=== PATIENT | female | born 1970 | race Caucasian/White ===

== ENCOUNTER 2019-11-15 15:41 | Emergency (ER) | payer SELFPAY ==
--- OUTSIDE RECORDS SUMMARY | 2019-11-15 15:43 | XMS REPORT ---
:1970 [facility] Organization [facility] Address [address] Thomas [address] [place] [id number] Care Team Providers Name Role Phone Unavailable Unavailable Unavailable Problems This patient has no known problems. Allergies, Adverse Reactions, Alerts This patient has no known allergies or adverse reactions. Medications This patient has no known medications.
[2019-11-15] MEDS ORDERED: KETOROLAC 30 MG/ML INJ ONE (16:08)
--- NOTE | 2019-11-15 16:09 | ER ---
Nurse's Notes [facility] Name: Alex Sunshine Age: 49 yrs Sex: Female : 1970 Arrival Date: 11/15/2019 Time: 15:42 Bed 20 Private MD: Diagnosis: Radial styloid tenosynovitis [de Quervain] Presentation: 11/15 15:44 Chief complaint: Patient states: Right wrist pain and swelling for 3 days. No specific ll1 trauma, just heavy use of extremity. Coronavirus screen: The patient has NOT traveled to [place] in the past 14 days. Proceed with normal triage procedures. Ebola Screen: No symptoms or risks identified at this time. Initial Sepsis Screen: Does the patient meet any 2 criteria? No. Patient's initial sepsis screen is negative. Does the patient have a suspected source of infection? No. Patient's initial sepsis screen is negative. Risk Assessment: Do you want to hurt yourself or someone else? Patient reports no desire to harm self or others. 15:44 Method Of Arrival: Ambulatory ll1 15:44 Acuity: MARIE 4 ll1 15:52 Onset of symptoms was November 15, 2019. 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 - Social history:: Smoking status: Patient reports the use of cigarette tobacco products, smokes one-half pack cigarettes per day, Patient/guardian denies using alcohol, street drugs. Screenin:49 Abuse screen: Denies threats or abuse. Denies injuries from another. Nutritional ca1 screening: No deficits noted. Tuberculosis screening: No symptoms or risk factors identified. Fall Risk None identified. Assessment: 15:52 General: Appears in no apparent distress. comfortable, Behavior is calm, cooperative, ca1 appropriate for age. Pain: Complains of pain in right wrist Pain currently is 7 out of 10 on a pain scale. Pain began 2-3 days ago. Neuro: Level of Consciousness is awake, alert, obeys commands, Oriented to person, place, time, situation, Appropriate for age. Derm: Skin is intact, is healthy with good turgor, Skin is pink, warm \T\ dry. Musculoskeletal: Circulation, motion, and sensation intact. Capillary refill < 3 seconds, Range of motion: limited in right wrist Swelling present in right wrist. Vital Signs: 15:44 BP 143 / 91; Pulse 87; Resp 17; Temp 98.1; Pulse Ox 100% ; Weight 83.91 kg; Height 5 ll1 ft. 8 in. (172.72 cm); Pain 7/10; 15:44 Body Mass Index 28.13 (83.91 kg, 172.72 cm) ll1 ED Course: 15:42 Patient arrived in ED. as 15:46 Triage completed. ll1 15:47 Arm band placed on left wrist. Patient placed in an exam room. 1 15:48 Todd Bullard PA is PHCP. [facility] 15:48 Demetri Gallardo MD is Attending Physician. [facility] 15:49 Patient has correct armband on for positive identification. Bed in low position. Call ca1 light in reach. Side rails up X 1. Pulse ox on. NIBP on. 15:49 No provider procedures requiring assistance completed. Patient did not have IV access ca1 during this emergency room visit. 16:00 Velcro wrist splint applied to right wrist. em 16:06 Gage Rodriguez, RN is Primary Nurse. em 16:06 Yordy Pettit MD is Referral Physician. [facility] Administered Medications: 16:12 Drug: Ketorolac 30 mg Route: IM; Site: right deltoid; em 16:30 Follow up: Response: No adverse reaction em Outcome: 16:08 Discharge ordered by MD. [facility] 16:45 Discharged to home ambulatory. em 16:45 Condition: good 16:45 Discharge instructions given to patient, family, Instructed on discharge instructions, follow up and referral plans. medication usage, Demonstrated understanding of instructions, follow-up care, medications, Prescriptions given X 1. 16:46 Patient left the ED. em Signatures: Todd Bullard PA PA jmm Munoz, Edgar, RN RN em Antonina Ann Cheryl, RN RN ca1 Amrik Riddle RN RN ll1
--- NOTE | 2019-11-15 16:09 | EDPHYS ---
Physician Documentation [facility] Name: Alex Sunshine Age: 49 yrs Sex: Female : 1970 Arrival Date: 11/15/2019 Time: 15:42 Bed 20 Private MD: ED Physician Demetri Gallardo HPI: 11/15 15:59 This 49 yrs old Female presents to ER via Ambulatory with complaints of Wrist jmm Pain. 15:59 The patient or guardian reports pain. Onset: The symptoms/episode began/occurred jmm gradually, 3 day(s) ago. Modifying factors: The symptoms are alleviated by holding still, the symptoms are aggravated by movement. Associated signs and symptoms: Pertinent negatives: cyanosis distally, decreased sensation distally, fever, nausea, numbness distally, tingling distally, vomiting. This is a 49 year old female with no chronic medical conditions that presents to the ED with complaints of right wrist pain beginning approx 3 days ago. Patient states she recently painted a house. Denies other known injury. . 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 - Social history:: Smoking status: Patient reports the use of cigarette tobacco products, smokes one-half pack cigarettes per day, Patient/guardian denies using alcohol, street drugs. ROS: 15:59 Constitutional: Negative for fever, chills, and weight loss, Cardiovascular: Negative jmm for chest pain, palpitations, and edema, Respiratory: Negative for shortness of breath, cough, wheezing, and pleuritic chest pain. 15:59 MS/extremity: Positive for pain. 15:59 All other systems are negative. Exam: 15:59 Constitutional: This is a well developed, well nourished patient who is awake, alert, jmm and in no acute distress. Head/Face: atraumatic. Eyes: EOMI, no conjunctival erythema appreciated ENT: Moist Mucus Membranes Neck: Trachea midline, Supple Chest/axilla: Normal chest wall appearance and motion. Cardiovascular: Regular rate and rhythm. No edema appreciated Respiratory: Normal respirations, no respiratory distress appreciated Abdomen/GI: Non distended, soft Back: Normal ROM Skin: General appearance color normal 15:59 Musculoskeletal/extremity: pain elicited on palpation of the distal radial region, (+) [place], full radial pulse, compartments are soft, NVI. 15:59 Skin: Appearance: Color: normal in color. 15:59 Neuro: Orientation: is normal, Mentation: is normal, Memory: is normal. 15:59 Psych: Behavior/mood is pleasant, cooperative. Vital Signs: 15:44 BP 143 / 91; Pulse 87; Resp 17; Temp 98.1; Pulse Ox 100% ; Weight 83.91 kg; Height 5 ll1 ft. 8 in. (172.72 cm); Pain 7/10; 15:44 Body Mass Index 28.13 (83.91 kg, 172.72 cm) ll1 Procedures: 15:59 Splinting: Splint applied to right wrist using thumb spica. applied by tech. Examined jmm by me, post splint application: neurovascular intact, 2+ distal pulses palpable, brisk capillary refill noted, Patient tolerated well. MDM: 15:49 Patient medically screened. [facility] 16:05 Data reviewed: vital signs, nurses notes. Counseling: I had a detailed discussion with domi the patient and/or guardian regarding: the historical points, exam findings, and any diagnostic results supporting the discharge/admit diagnosis, radiology results, the need for outpatient follow up, to return to the emergency department if symptoms worsen or persist or if there are any questions or concerns that arise at home. ED course: PE findings consistent with flexor tenosynovitis. Patient advised to follow up with orthopedics for further evaluation. Patient understood and agrees with the plan of care. . 11/15 15:59 Order name: Thumb Spica Splint; Complete Time: 16:06 [facility] Administered Medications: 16:12 Drug: Ketorolac 30 mg Route: IM; Site: right deltoid; em 16:30 Follow up: Response: No adverse reaction em Disposition: 17:51 Co-signature as Attending Physician, Demetri Gallardo MD Chart signed for administrative ps1 purposes. . Disposition: 11/15/19 16:08 Discharged to Home. Impression: Radial styloid tenosynovitis [de Quervain]. - Condition is Stable. - Discharge Instructions: De Quervain Tenosynovitis. - Prescriptions for Ibuprofen 800 mg Oral Tablet - take 1 tablet by ORAL route every 8 hours As needed take with food; 30 tablet. - Medication Reconciliation Form, Thank You Letter, Antibiotic Education, Prescription Opioid Use, Work release form form. - Follow up: Yordy Pettit MD; When: 2 - 3 days; Reason: Recheck today's complaints, Continuance of care, Re-evaluation by your physician. Signatures: Todd Bullard PA PA jmm Munoz, Edgar, RN RN em Demetri Gallardo MD MD ps1 Sveta Ohara RN RN ca1 Amrik Riddle RN RN ll1 Corrections: (The following items were deleted from the chart) 16:46 16:08 11/15/2019 16:08 Discharged to Home. Impression: Radial styloid tenosynovitis [de em Quervain]. Condition is Stable. Forms are Medication Reconciliation Form, Thank You Letter, Antibiotic Education, Prescription Opioid Use. Follow up: Yordy Pettit; When: 2 - 3 days; Reason: Recheck today's complaints, Continuance of care, Re-evaluation by your physician. domi
[2019-11-15 17:01] VITALS: BP 143/91; TEMP 98.1; O2SAT 100
== END 2019-11-15 16:46 | disposition home or self-care (01) ==
LOC: ER 15:41
DX: M65.4 Radial styloid tenosynovitis [de Quervain] (principal); F17.210 Nicotine dependence, cigarettes, uncomplicated
CPT/HCPCS: 96372; 99284

== ENCOUNTER 2020-05-21 17:25 | Emergency (ER) | payer SELFPAY ==
--- OUTSIDE RECORDS SUMMARY | 2020-05-21 17:27 | XMS REPORT | Continuity of Care Document ---
:1970 Author Organization [facility] Address [address] [place] [address] Care Team Providers Name Role Phone Unavailable Unavailable Unavailable Problems This patient has no known problems. Allergies, Adverse Reactions, Alerts This patient has no known allergies or adverse reactions. Medications This patient has no known medications. Procedures This patient has no known procedures. Results This patient has no known results.
--- NOTE | 2020-05-21 18:45 | EDPHYS ---
Physician Documentation [facility] Name: Alex Sunshine Age: 49 yrs Sex: Female : 1970 Arrival Date: 05/21/2020 Time: 17:31 Bed 19 Private MD: ED Physician Ramsey Carpio HPI: 05/21 18:39 This 49 yrs old Female presents to ER via Ambulatory with complaints of Hives.[facility] 18:39 The patient's rash thought to be caused by an unknown cause. The rash is located on the [facility] right arm and left arm. Onset: The symptoms/episode began/occurred gradually, 2 month(s) ago. Associated signs and symptoms: Pertinent positives: itching, Pertinent negatives: fever, nausea, Pain swelling of lips, swelling of throat, swelling of tongue, vomiting. The patient has not experienced similar symptoms in the past. Historical: - Allergies: 17:42 No Known Drug Allergies; ll1 - PSHx: 17:42 None; ll1 - Immunization history:: Flu vaccine is up to date. - Social history:: Smoking status: Patient reports the use of cigarette tobacco products, smokes one-half pack cigarettes per day, Patient/guardian denies using alcohol, street drugs. ROS: 18:39 Constitutional: Negative for fever, chills, and weight loss, Cardiovascular: Negative jmm for chest pain, palpitations, and edema, Respiratory: Negative for shortness of breath, cough, wheezing, and pleuritic chest pain, Abdomen/GI: Negative for abdominal pain, nausea, vomiting, diarrhea, and constipation. 18:39 Skin: Positive for rash. 18:39 All other systems are negative. Exam: 18:39 Constitutional: This is a well developed, well nourished patient who is awake, alert, jmm and in no acute distress. Head/Face: atraumatic. Eyes: EOMI, no conjunctival erythema appreciated ENT: Moist Mucus Membranes Neck: Trachea midline, Supple Chest/axilla: Normal chest wall appearance and motion. Cardiovascular: Regular rate and rhythm. No edema appreciated Respiratory: Normal respirations, no respiratory distress appreciated Abdomen/GI: Non distended, soft Back: Normal ROM 18:39 Skin: papular crusting rash noted to the upper extremities bilaterally, no surrounding erythema or induration is appreciated. non tender to palpation.. 18:39 Neuro: Orientation: is normal, Mentation: is normal, Memory: is normal. 18:39 Psych: Behavior/mood is pleasant, cooperative. Vital Signs: 17:40 BP 137 / 100; Pulse 89; Resp 17; Temp 98.6; Pulse Ox 100% ; Pain 5/10; ll1 MDM: 18:39 Patient medically screened. [facility] 18:43 Data reviewed: vital signs, nurses notes. Counseling: I had a detailed discussion with [facility] the patient and/or guardian regarding: the historical points, exam findings, and any diagnostic results supporting the discharge/admit diagnosis, the need for outpatient follow up, to return to the emergency department if symptoms worsen or persist or if there are any questions or concerns that arise at home. ED course: Patient is alert and non toxic in appearance in the ED. Patient is advised to follow up with pcp and otherwise given strict return precautions. Patient understood and agrees with the plan of care. . Administered Medications: 18:55 Drug: Decadron 10 mg Route: IM; Site: right deltoid; ph 19:07 Follow up: Response: No adverse reaction ph Disposition: 05/22 17:05 Co-signature as Attending Physician, Ramsey Carpio MD I agree with the assessment and kdr plan of care. Disposition: 05/21/20 18:45 Discharged to Home. Impression: Rash and other nonspecific skin eruption. - Condition is Stable. - Discharge Instructions: Rash. - Prescriptions for Elimite 5 % Topical Cream - apply 1 application by TOPICAL route one time Wash after 12 hours.; 60 gram. Hydroxyzine HCl 25 mg Oral Tablet - take 1 tablet by ORAL route every 6 hours As needed; 30 tablet. Prednisone 20 mg Oral Tablet - take 3 tablets by ORAL route once daily for 12 days Please take 3 tabs by mouth daily for 3 days, then take 2 tabs daily for 3 days, then take 1 tab daily for 3 days, then 1/2 tab daily for 3 days; 20 tablet. - Medication Reconciliation Form, Thank You Letter, Antibiotic Education, Prescription Opioid Use form. - Follow up: Private Physician; When: 2 - 3 days; Reason: Recheck today's complaints, Continuance of care, Re-evaluation by your physician. Signatures: Ramsey Carpio MD MD kdr Mickail, Joel, PA PA [facility] Karma Garcia RN RN ph Amrik Riddle RN RN ll1 Corrections: (The following items were deleted from the chart) 05/21 19:09 18:45 05/21/2020 18:45 Discharged to Home. Impression: Rash and other nonspecific skin ll1 eruption. Condition is Stable. Forms are Medication Reconciliation Form, Thank You Letter, Antibiotic Education, Prescription Opioid Use. Follow up: Private Physician; When: 2 - 3 days; Reason: Recheck today's complaints, Continuance of care, Re-evaluation by your physician. domi
--- NOTE | 2020-05-21 18:45 | ER ---
Nurse's Notes [facility] Name: Alex Sunshine Age: 49 yrs Sex: Female : 1970 Arrival Date: 05/21/2020 Time: 17:31 Bed 19 Private MD: Diagnosis: Rash and other nonspecific skin eruption Presentation: 05/21 17:40 Chief complaint: Patient states: Rash to body for 2 months all over. Tried OTC ll1 benadryl, investa, and calamine that didn't help. States she treated her house for bed bugs recently. Coronavirus screen: Client denies travel out of the [place] in the last 14 days. At this time, the client does not indicate any symptoms associated with coronavirus-19. Ebola Screen: Patient denies travel to an Ebola-affected area in the 21 days before illness onset. Onset: The symptoms/episode began/occurred 2 week(s) ago. Anaphylaxis evaluation, no signs or symptoms of anaphylaxis were noted. Initial Sepsis Screen: Does the patient meet any 2 criteria? No. Patient's initial sepsis screen is negative. Risk Assessment: Do you want to hurt yourself or someone else? Patient reports no desire to harm self or others. Onset of symptoms was March 20, 2020. 17:40 Method Of Arrival: Ambulatory [facility] 17:40 Acuity: MARIE 4 ll1 Historical: - Allergies: 17:42 No Known Drug Allergies; ll1 - PSHx: 17:42 None; ll1 - Immunization history:: Flu vaccine is up to date. - Social history:: Smoking status: Patient reports the use of cigarette tobacco products, smokes one-half pack cigarettes per day, Patient/guardian denies using alcohol, street drugs. Screenin:08 Abuse screen: Denies threats or abuse. Denies injuries from another. Nutritional ph screening: No deficits noted. Tuberculosis screening: No symptoms or risk factors identified. Fall Risk None identified. Assessment: 19:09 General: Appears in no apparent distress. uncomfortable, Behavior is calm, cooperative, ph appropriate for age. Pain: Denies pain. Neuro: Level of Consciousness is awake, alert, obeys commands, Oriented to person, place, time, situation. Cardiovascular: Capillary refill < 3 seconds in bilateral fingers Patient's skin is warm and dry. Respiratory: Airway is patent Respiratory effort is even, unlabored, Respiratory pattern is regular, symmetrical. Derm: Skin is healthy with good turgor, Skin is pink, warm \T\ dry. Derm: Rash noted that is itchy, red, raised, on right arm and left arm. Musculoskeletal: Circulation, motion, and sensation intact. Range of motion: intact in all extremities. Vital Signs: 17:40 BP 137 / 100; Pulse 89; Resp 17; Temp 98.6; Pulse Ox 100% ; Pain 5/10; ll1 ED Course: 17:31 Patient arrived in ED. ds1 17:42 Triage completed. ll1 17:43 Arm band placed on. ll1 18:38 Todd Bullard PA is PHCP. [facility] 18:38 Ramsey Carpio MD is Attending Physician. [facility] 18:45 No provider procedures requiring assistance completed. ph 18:47 Karma Garcia, RN is Primary Nurse. ph 18:55 Patient did not have IV access during this emergency room visit. ph 19:08 Patient has correct armband on for positive identification. Bed in low position. Call light in reach. Side rails up X 1. Pulse ox on. NIBP on. Administered Medications: 18:55 Drug: Decadron 10 mg Route: IM; Site: right deltoid; ph 19:07 Follow up: Response: No adverse reaction ph Outcome: 18:45 Discharge ordered by . [facility] 19:09 Patient left the ED. 1 19:11 Discharged to home ambulatory. ph 19:11 Condition: good 19:11 Discharge instructions given to patient, Instructed on discharge instructions, follow up and referral plans. medication usage, Demonstrated understanding of instructions, follow-up care, medications, Prescriptions given X 3. Signatures: Todd Bullard PA PA jmm Sanford, Demi ds1 Karma Garcia, RN RN Amrik Riddle RN RN [facility]
[2020-05-21] MEDS ORDERED: dexAMETHasone 10 MG/ML VIAL ONE (19:11)
[2020-05-23 16:01] VITALS: BP 137/100; TEMP 98.6; O2SAT 100
== END 2020-05-21 19:09 | disposition home or self-care (01) ==
LOC: ER 17:25
DX: R21 Rash and other nonspecific skin eruption (principal); F17.210 Nicotine dependence, cigarettes, uncomplicated
CPT/HCPCS: 96372; 99283; J1100

== ENCOUNTER 2020-06-12 08:28 | Emergency (ER) | payer SELFPAY ==
--- OUTSIDE RECORDS SUMMARY | 2020-06-12 08:37 | XMS REPORT | Summary of Care ---
:1970 Author Organization [facility] - Health Address [address] [place] [id number] Care Team Providers Name Role Phone Pcp, Does Not Have A Primary Care Provider Reason for Referral Other (Routine) Status Reason Specialty Diagnoses / Referred By Contact Refe rred To Procedures Contact New Request Diagnoses Right wrist pain Erick Muñoz, Vinay Jama, Procedures Discharge Follow-up: Specialty Provider VINAY JAMA; 1 Week [employer] [address] [place], [place] [id number] [place], [place] Phone: [phone] Fax: Reason for Visit Reason Comments Wrist Pain Auth/Cert Status Reason Specialty Diagnoses / Referred By Referred To Procedures Contact Contact Emergency Medicine [facility] Dept [address] [place] [phone] Fax: Encounter Details Date Type Department Care Team Description 06/07/2020 Emergency [facility]-Emergency Erick Muñoz , [employer] Right wrist pain Department [address] [place] [address] (Primary Dx) [address] [place] [phone] [place] [phone] Allergies No Known Allergiesdocumented as of this encounter (statuses as of 06/07/2020) Medications Medication Sig Dispensed Refills Start Date End Date Status ibuprofen 800 mg Take 1 tablet by 30 tablet 0 08/03/2017 Active tablet mouth every 8 (eight) hours. documented as of this encounter (statuses as of 06/07/2020) Active Problems No known active problemsdocumented as of this encounter (statuses as of 06/07/2020) Social History Tobacco Use Types Packs/Day Years Used Date Never Assessed Sex Assigned at Date Recorded Not on file COVID-19 Exposure Response Date Recorded In the last month, have you been in contact with No / Unsure 06/07/2020 12:50 PM CDT someone who was confirmed or suspected to have Coronavirus / COVID-19? documented as of this encounter Last Filed Vital Signs Vital Sign Reading Time Taken Comments Blood Pressure 148/99 06/07/2020 1:09 PM CDT Pulse 88 06/07/2020 1:09 PM CDT Temperature 37 C (98.6 F) 06/07/2020 1:09 PM CDT Respiratory Rate 15 06/07/2020 1:09 PM CDT Oxygen Saturation 99% 06/07/2020 1:09 PM CDT Inhaled Oxygen Concentration - - Weight 88.5 kg (195 lb) 06/07/2020 1:09 PM CDT Height 170.2 cm (5' 7") 06/07/2020 1:09 PM CDT Body Mass Index 30.54 06/07/2020 1:09 PM CDT documented in this encounter ED Notes Hansa Vazquez, CHERYL - 06/07/2020 1:08 PM CDTPatient states she has history of tendonitis. States she works at [employer] and she started experiencing right wrist pain because they were busy and she "was working too hard". documented in this encounter Miscellaneous Notes ED Nurse Note - Adenike Willis RN - 06/07/2020 1:37 PM CDTPatient upset that she is not getting a work note. Patient states "I have to go to work I just camefor a note". I explained to patient that she was seen by a provider who provided a medical screening exam and was determined to not have am emergent medical condition. Patient was advised that unlessshe paid the fee she could not receive a note and that she would need to follow up with her PCP. Patient repeated "I just want a damn work note". Patient stated "I'm making a complaint this isn't legal". Patient was given the number for patient services. documented in this encounter Plan of Treatment Date Type Specialty Care Team Description 06/24/2020 Office Visit Family Medicine Ton Benton MD [address] [place] [address] [phone] Health Maintenance Due Date Last Done Comments Depression Screening 1984 DTaP,Tdap,and Td Vaccines (1 - 1991 Tdap) PAP SMEAR 1993 Breast Cancer Screening 2012 (MAMMOGRAM) INFLUENZA VACCINE (#1) 2020 Colorectal Cancer Screening 2022 PNEUMOCOCCAL 0-64 YEARS COMBINED Aged Out No longer eligible based on SERIES patient's age to complete this topic documented as of this encounter Procedures Procedure Name Priority Date/Time Associated Diagnosis Comme nts NOTICE OF PRIVACY Routine 06/07/2020 12:53 PM CDT PRACTICES CONSENT/REFUSAL FOR Routine 06/07/2020 12:51 PM CDT DIAGNOSIS AND TREATMENT documented in this encounter Results Not on filedocumented in this encounter Visit Diagnoses Diagnosis Right wrist pain - Primary Pain in joint, forearm documented in this encounter
--- OUTSIDE RECORDS SUMMARY | 2020-06-12 08:37 | XMS REPORT | Continuity of Care Document ---
:1970 Author Organization [facility] t Address [address] [place] [address] Care Team Providers Name Role Phone Mariana Lowe Attending Clinician Problems This patient has no known problems. Allergies, Adverse Reactions, Alerts This patient has no known allergies or adverse reactions. Medications This patient has no known medications. Procedures This patient has no known procedures. Encounters Start End Encounter Admission Attending Care Care Encounter Source Date/Time Date/Time Type Type Clinicians Facility Department ID 2020-06-07 2020-06-07 Emergency Wanda [facility] [id number] 13:10:00 13:42:00 Erick Grace [id number] [place] [id number] Roland [id number] Results This patient has no known results.
--- NOTE | 2020-06-12 10:20 | ER ---
Nurse's Notes [facility] Name: Alex Sunshine Age: 49 yrs Sex: Female : 1970 Arrival Date: 06/12/2020 Time: 08:29 Bed 2 Private MD: Diagnosis: Pain in throat;Acute upper respiratory infection, unspecified;Tendinitis, right wrist Presentation: 06/12 08:35 Chief complaint: Patient states: "It feels like there is a lump in my chest for the ss past 2 days. I woke up with a sore throat this morning. My granddaughter was recently diagnosed with strep." Also reports R wrist pain x 4 months. Hx of tendonitis. Coronavirus screen: Client denies travel out of the [place] in the last 14 days. Ebola Screen: Patient denies exposure to infectious person. Patient denies travel to an Ebola-affected area in the 21 days before illness onset. Initial Sepsis Screen: Does the patient meet any 2 criteria? No. Patient's initial sepsis screen is negative. Does the patient have a suspected source of infection? No. Patient's initial sepsis screen is negative. Risk Assessment: Do you want to hurt yourself or someone else? Patient reports no desire to harm self or others. Onset of symptoms is unknown. 08:35 Method Of Arrival: Ambulatory ss 08:35 Acuity: MARIE 3 ss ART CONSULTANT: 09:00 LMP N/A - tw2 Historical: - Allergies: 08:37 No Known Allergies; ss - Home Meds: 08:37 None [Active]; ss - PMHx: 08:37 None; ss - PSHx: 08:37 None; ss - Immunization history:: Adult Immunizations up to date. - Social history:: Smoking status: Patient reports the use of cigarette tobacco products, smokes one-half pack cigarettes per day. - Family history:: not pertinent. - Hospitalizations: : No recent hospitalization is reported. Screenin:00 Abuse screen: Denies threats or abuse. Nutritional screening: No deficits noted. tw2 Tuberculosis screening: No symptoms or risk factors identified. Fall Risk None identified. Assessment: 08:40 General: Appears in no apparent distress. well groomed, Behavior is calm, cooperative, tw2 appropriate for age. Pain: Complains of pain in uvula, left aspect of posterior pharynx and right aspect of posterior pharynx. Neuro: Level of Consciousness is awake, alert, obeys commands, Oriented to person, place, time, situation. Cardiovascular: Heart tones S1 S2 Patient's skin is warm and dry. Respiratory: Airway is patent Respiratory effort is even, unlabored, Respiratory pattern is regular, symmetrical, Breath sounds are clear bilaterally. GI: No signs and/or symptoms were reported involving the gastrointestinal system. Abdomen is flat, Bowel sounds present X 4 quads. : No signs and/or symptoms were reported regarding the genitourinary system. EENT: Throat is reddened. Derm: No signs and/or symptoms reported regarding the dermatologic system. Musculoskeletal: Range of motion: intact in all extremities. 09:53 Reassessment: Patient appears in no apparent distress at this time. No changes from tw2 previously documented assessment. Patient and/or family updated on plan of care and expected duration. Pain level reassessed. Patient is alert, oriented x 3, equal unlabored respirations, skin warm/dry/pink. 10:31 Reassessment: Patient appears in no apparent distress at this time. No changes from tw2 previously documented assessment. Patient and/or family updated on plan of care and expected duration. Pain level reassessed. Patient is alert, oriented x 3, equal unlabored respirations, skin warm/dry/pink. 10:43 Reassessment: Patient appears in no apparent distress at this time. No changes from tw2 previously documented assessment. Patient and/or family updated on plan of care and expected duration. Pain level reassessed. Patient is alert, oriented x 3, equal unlabored respirations, skin warm/dry/pink. Vital Signs: 08:35 BP 129 / 78; Pulse 87; Resp 15; Temp 97.0(TE); Pulse Ox 100% on R/A; Weight 90.72 kg; Height 5 ft. 7 in. (170.18 cm); Pain 5/10; 09:53 BP 131 / 84; Pulse 72; Resp 17; Pulse Ox 98% on R/A; tw2 10:31 BP 95 / 80; Pulse 74; Resp 18; Pulse Ox 100% on R/A; tw2 08:35 Body Mass Index 31.32 (90.72 kg, 170.18 cm) ED Course: 07:42 Bed in low position. Call light in reach. case monitor on. Pulse ox on. NIBP on. tw2 08:29 Patient arrived in ED. ag5 08:37 Triage completed. ss 08:37 Arm band placed on right wrist. ss 08:39 Arturo Flores MD is Attending Physician. rn 09:00 Tasneem Maki RN is Primary Nurse. tw2 09:04 COVID-19 Sent. tw2 09:04 Strep Sent. tw2 09:05 Flu Sent. tw2 10:32 Lorenzo Amador MD is Referral Physician. rn 10:43 No provider procedures requiring assistance completed. Patient did not have IV access tw2 during this emergency room visit. Administered Medications: 10:41 Drug: traMADol 50 mg Route: PO; tw2 10:43 Follow up: Response: No adverse reaction tw2 Outcome: 10:20 Discharge ordered by . rn 10:43 Discharged to home ambulatory. tw2 10:43 Condition: stable 10:43 Discharge instructions given to patient, Instructed on discharge instructions, follow up and referral plans. medication usage, Demonstrated understanding of instructions, follow-up care, medications, Prescriptions given X 1. 10:44 Patient left the ED. tw2 Addendum: 06/13/2020 14:41 Addendum: COVID-19 Result: Negative result given to RN to notify pt. Contacted by: pilar Clemons RN . Attempted to contact pt regarding negative COVID-19 swab results. Signatures: Wendy rIving RN RN Arturo Flores MD MD rn Smirch, Shelby, RN RN Tasneem Maki RN RN 2 [facility] ag[facility]
--- NOTE | 2020-06-12 10:20 | EDPHYS ---
Physician Documentation [facility] Name: Alex Sunshine Age: 49 yrs Sex: Female : 1970 Arrival Date: 06/12/2020 Time: 08:29 Bed 2 Private MD: ED Physician Arturo Flores HPI: 06/12 09:02 This 49 yrs old Female presents to ER via Ambulatory with complaints of Sore rn Throat, Hand Problem. 09:02 The patient presents with sore throat. The patient describes throat pain as burning, rn dry. 09:03 Onset: The symptoms/episode began/occurred 2 day(s) ago. Severity of symptoms: At their rn worst the symptoms were mild, in the emergency department the symptoms are unchanged. Modifying factors: The symptoms are alleviated by nothing, the symptoms are aggravated by swallowing. The patient has not experienced similar symptoms in the past. Reports sore throat for 2 days, granddaughter recently diagnosed with strep throat, also reports about 4 months of wrist/thumb pain without injury. Also reports "lump in chest for 2 days as well". Chest pain brief, not assoc with cough/sob/diaphoresis. No trauma. . PET CARE ASSISTANT: 09:00 LMP N/A - tw2 Historical: - Allergies: 08:37 No Known Allergies; ss - Home Meds: 08:37 None [Active]; ss - PMHx: 08:37 None; ss - PSHx: 08:37 None; ss - Immunization history:: Adult Immunizations up to date. - Social history:: Smoking status: Patient reports the use of cigarette tobacco products, smokes one-half pack cigarettes per day. - Family history:: not pertinent. - Hospitalizations: : No recent hospitalization is reported. ROS: 09:03 Constitutional: Negative for fever, chills, and weight loss, Eyes: Negative for injury, rn pain, redness, and discharge, ENT: + sore throat and runny nose Neck: Negative for injury, pain, and swelling, Cardiovascular: Negative for palpitations, and edema, Respiratory: Negative for shortness of breath, cough, wheezing, and pleuritic chest pain, Abdomen/GI: Negative for abdominal pain, nausea, vomiting, diarrhea, and constipation, MS/Extremity: + right wrist/thumb pain Skin: Negative for injury, rash, and discoloration, Neuro: Negative for headache, weakness, numbness, tingling, and seizure. Exam: 08:53 ECG was reviewed by the Attending Physician. rn 09:03 Constitutional: This is a well developed, well nourished patient who is awake, alert, rn and in no acute distress. Head/Face: Normocephalic, atraumatic. Eyes: Pupils equal round and reactive to light, extra-ocular motions intact. Lids and lashes normal. Conjunctiva and sclera are non-icteric and not injected. Cornea within normal limits. Periorbital areas with no swelling, redness, or edema. ENT: Mild pharyngeal erythema without exudate or stridor Neck: Trachea midline, no masses palpated, and no cervical lymphadenopathy. Supple, full range of motion without nuchal rigidity. No Meningismus. Cardiovascular: Regular rate and rhythm. No pulse deficits. Respiratory: Speaking full sentences. No increased work of breathing, no retractions or nasal flaring. Abdomen/GI: Soft, non-tender Skin: Warm, dry MS/ Extremity: Pulses equal, no cyanosis. Neurovascular intact. + painful extension of thumb and with palpation over tendons on radial side of wrist. No focal swelling/erythema/streaking. Neuro: Awake and alert, GCS 15 Vital Signs: 08:35 BP 129 / 78; Pulse 87; Resp 15; Temp 97.0(TE); Pulse Ox 100% on R/A; Weight 90.72 kg; ss Height 5 ft. 7 in. (170.18 cm); Pain 5/10; 09:53 BP 131 / 84; Pulse 72; Resp 17; Pulse Ox 98% on R/A; tw2 10:31 BP 95 / 80; Pulse 74; Resp 18; Pulse Ox 100% on R/A; tw2 08:35 Body Mass Index 31.32 (90.72 kg, 170.18 cm) ss MDM: 08:39 Patient medically screened. rn 10:18 Differential diagnosis: group A strep tonsillitis, influenza, pharyngitis, viral rn syndrome Tendinitis, carpal tunnel syndrome. Data reviewed: vital signs, nurses notes, lab test result(s), and as a result, I will discharge patient. Counseling: I had a detailed discussion with the patient and/or guardian regarding: the historical points, exam findings, and any diagnostic results supporting the discharge/admit diagnosis, lab results, the need for outpatient follow up, to return to the emergency department if symptoms worsen or persist or if there are any questions or concerns that arise at home. Special discussion: I discussed with the patient/guardian in detail that at this point there is no indication for admission to the hospital. It is understood, however, that if the symptoms persist or worsen the patient needs to return immediately for re-evaluation. 06/12 08:52 Order name: Strep; Complete Time: 10:18 rn 06/12 08:52 Order name: Flu; Complete Time: 10:18 rn 06/12 08:52 Order name: COVID-19 rn 06/12 08:52 Order name: EKG; Complete Time: 08:53 rn 06/12 10:11 Order name: Throat Culture EDMS 06/12 08:52 Order name: EKG - Nurse/Tech; Complete Time: 09:04 rn EC:53 Rate is 85 beats/min. Rhythm is regular. QRS [place] is Normal. [place] interval is normal. QRS rn interval is normal. QT interval is normal. No Q waves. T waves are Normal. No ST changes noted. Clinical impression: NSR w/ Non-specific ST/T Changes. Interpreted by me. Reviewed by me. Administered Medications: 10:41 Drug: traMADol 50 mg Route: PO; tw2 10:43 Follow up: Response: No adverse reaction tw2 Disposition: 06/12/20 10:20 Discharged to Home. Impression: Pain in throat, Acute upper respiratory infection, unspecified, Tendinitis, right wrist. - Condition is Stable. - Discharge Instructions: Sore Throat, Tendinitis, Upper Respiratory Infection, Adult. - Prescriptions for Medrol (Ronnie) 4 mg Oral Tablets, Dose Pack - take 1 tablet by ORAL route as directed - follow package instructions; 1 packet. - Medication Reconciliation Form, Thank You Letter, Antibiotic Education, Prescription Opioid Use form. - Work release form (06/12/20 10:44). em1 - Follow up: Private Physician; When: As needed; Reason: Recheck today's complaints, Re-evaluation by your physician. Follow up: Lorenzo Amador MD; When: As needed; Reason: Recheck today's complaints, Re-evaluation by your physician. - Problem is an ongoing problem. - Symptoms have improved. Signatures: Dispatcher [employer] EDMS Arturo Flores MD MD rn Smirch, Shelby, RN RN ss Wise, Tara, RN RN tw2 [place]1 Corrections: (The following items were deleted from the chart) 09:04 09:03 Constitutional: Negative for fever, chills, and weight loss, Eyes: Negative for rn injury, pain, redness, and discharge, Neck: Negative for injury, pain, and swelling, Cardiovascular: Negative for palpitations, and edema, Respiratory: Negative for shortness of breath, cough, wheezing, and pleuritic chest pain, Abdomen/GI: Negative for abdominal pain, nausea, vomiting, diarrhea, and constipation, MS/Extremity: + right wrist/thumb pain Skin: Negative for injury, rash, and discoloration, Neuro: Negative for headache, weakness, numbness, tingling, and seizure, rn 10:32 10:20 06/12/2020 10:20 Discharged to Home. Impression: Pain in throat; Acute upper rn respiratory infection, unspecified; Tendinitis, right wrist. Condition is Stable. Forms are Medication Reconciliation Form, Thank You Letter, Antibiotic Education, Prescription Opioid Use. Follow up: Private Physician; When: As needed; Reason: Recheck today's complaints, Re-evaluation by your physician. Problem is an ongoing problem. Symptoms have improved. rn 10:44 10:32 06/12/2020 10:20 Discharged to Home. Impression: Pain in throat; Acute upper tw2 respiratory infection, unspecified; Tendinitis, right wrist. Condition is Stable. Discharge Instructions: Sore Throat, Tendinitis, Upper Respiratory Infection, Adult. Prescriptions for Medrol (Ronnie) 4 mg Oral Tablets, Dose Pack - take 1 tablet by ORAL route as directed - follow package instructions; 1 packet. and Forms are Medication Reconciliation Form, Thank You Letter, Antibiotic Education, Prescription Opioid Use. Follow up: Private Physician; When: As needed; Reason: Recheck today's complaints, Re-evaluation by your physician. Follow up: Lorenzo Amador; When: As needed; Reason: Recheck today's complaints, Re-evaluation by your physician. Problem is an ongoing problem. Symptoms have improved. rn
[2020-06-12] MEDS ORDERED: TRAMADOL HCL 50 MG TAB ONE (10:52)
[2020-06-12 11:01] VITALS: TEMP 97
[2020-06-12 11:02] VITALS: BP 95/80; O2SAT 100
== END 2020-06-12 10:44 | disposition home or self-care (01) ==
LOC: ER 08:28
DX: J06.9 Acute upper respiratory infection, unspecified (principal); Z20.828 Contact with and (suspected) exposure to other viral communicable diseases; M77.9 Enthesopathy, unspecified; F17.210 Nicotine dependence, cigarettes, uncomplicated
CPT/HCPCS: 87070; 87081; 87804; 93005; 99284; U0002

== ENCOUNTER 2020-08-30 08:14 | Emergency (ER) | payer SELFPAY ==
--- OUTSIDE RECORDS SUMMARY | 2020-08-30 08:16 | XMS REPORT | Continuity of Care Document ---
:1970 Author Organization [facility] t Address [address] [place] [address] Care Team Providers Name Role Phone Mariana [...] Facility Department ID 2020-06-07 2020-06-07 Emergency Wanda [facility] [id number] 13:10:00 13:42:00 Erick Grace [id number] [place] [id number] [place] [phone] Results This patient has no known results.
--- NOTE | 2020-08-30 09:26 | ER ---
Nurse's Notes [facility] Name: Alex Sunshine Age: 49 yrs Sex: Female : 1970 Arrival Date: 08/30/2020 Time: 08:16 Bed 13 Private MD: Diagnosis: Acute upper respiratory infection, unspecified;Cough Presentation: 08/30 08:20 Chief complaint: Patient states: productive cough with phlegm, sore throat, and aa5 headache x 7-8 days ago. 08:20 Coronavirus screen: cough unrelated to allergies, headache. Ebola Screen: Patient aa5 negative for fever greater than or equal to 101.5 degrees Fahrenheit, and additional compatible Ebola Virus Disease symptoms. Initial Sepsis Screen: Does the patient meet any 2 criteria? No. Patient's initial sepsis screen is negative. Does the patient have a suspected source of infection? No. Patient's initial sepsis screen is negative. Risk Assessment: Do you want to hurt yourself or someone else? Patient reports no desire to harm self or others. Onset of symptoms was August 2020. 08:20 Acuity: MARIE 3 aa5 08:20 Method Of Arrival: Ambulatory aa5 Historical: - Allergies: 08:20 No Known Allergies; aa5 - Home Meds: 08:20 None [Active]; aa5 - PMHx: 08:20 Gestational hypertension; aa5 - PSHx: 08:20 ; aa5 - Immunization history:: Adult Immunizations unknown. - Social history:: Smoking status: Patient reports the use of cigarette tobacco products, smokes one-half pack cigarettes per day. - Family history:: not pertinent. Screenin:20 Abuse screen: Denies threats or abuse. Nutritional screening: No deficits noted. aa5 Tuberculosis screening: No symptoms or risk factors identified. Fall Risk None identified. Assessment: 08:20 General: Appears uncomfortable, Behavior is calm, cooperative. Pain: Complains of pain aa5 in head Pain currently is 5 out of 10 on a pain scale. Quality of pain is described as aching, Is continuous. Neuro: Level of Consciousness is awake, alert, obeys commands, Oriented to person, place, time, situation. Cardiovascular: Heart tones S1 S2 present Rhythm is regular. Respiratory: Reports cough that is productive, Airway is patent Respiratory effort is even, unlabored, Respiratory pattern is regular, symmetrical, Breath sounds are clear bilaterally. Denies shortness of breath. GI: Reports nausea, Patient currently denies vomiting. : No signs and/or symptoms were reported regarding the genitourinary system. EENT: Eyes are tearing on right eye and left eye. Derm: Skin is pink, warm \T\ dry. Musculoskeletal: Range of motion: intact in all extremities. Vital Signs: 08:20 BP 130 / 95; Pulse 82; Resp 16 S; Temp 98.2(O); Pulse Ox 99% on R/A; Weight 88.45 kg aa5 (R); Height 5 ft. 9 in. (175.26 cm) (R); Pain 5/10; 08:20 Body Mass Index 28.80 (88.45 kg, 175.26 cm) aa5 ED Course: 08:16 Patient arrived in ED. ag5 08:20 Arm band placed on. aa5 08:20 Patient has correct armband on for positive identification. Call light in reach. aa 08:24 Jose Francisco Holden MD is Attending Physician. [facility] 08:29 Zoë Quijano RN is Primary Nurse. jl7 08:40 Triage completed. aa5 09:20 COVID swab sent to lab. Flu and/or RSV swab sent to lab. jl7 09:39 No provider procedures requiring assistance completed. Patient did not have IV access jl7 during this emergency room visit. Administered Medications: 09:39 Not Given (pt left before administration): Zithromax 500 mg PO once jl7 Outcome: 09:25 Discharge ordered by . [facility] 09:40 Discharged to home ambulatory. jl7 09:40 Condition: stable 09:40 Discharge instructions given to patient, Instructed on discharge instructions, follow up and referral plans. medication usage, Demonstrated understanding of instructions, follow-up care, medications, Prescriptions given X 3. 09:40 Patient left the ED. jl7 Addendum: 09/02/2020 09:43 Addendum: COVID-19 Result: Negative result given to RN to notify pt. Attempted to s v contact pt regarding negative COVID-19 swab results. Unable to leave voice mail due to the number provided was either not a working number, the voice mail has not been set up, or the voice mailbox is full.. 14:57 Addendum: COVID-19 Result: Negative result given to RN to notify pt. Contacted by: SV. pilar mims Notified pt of negative COVID 19 swab results. Pt advised that even with a negative test result they should remain in isolation until symptom free for 3 days without medication. Pt also advised to return to the ED for worsening symptoms. Signatures: Wendy Irving, RN Jose Francisco Trejo MD MD cha Calderon, Audri, RN RN aa5 Zoë Quijano RN RN jl7 Billie Alicia ag5 Corrections: (The following items were deleted from the chart) 08/30 09:20 Discharged to home ambulatory, [place] [id number] 09:20 Condition: stable [place] [id number] 09:20 Discharge instructions given to patient, Instructed on discharge instructions, jl7 follow up and referral plans. medication usage, Demonstrated understanding of instructions, follow-up care, medications, Prescriptions given X 3, jl7
--- NOTE | 2020-08-30 09:26 | EDPHYS ---
Physician Documentation [facility] Name: Alex Sunshine Age: 49 yrs Sex: Female : 1970 Arrival Date: 08/30/2020 Time: 08:16 Bed 13 Private MD: ED Physician Jose Francisco Holden HPI: 08/30 09:21 This 49 yrs old Female presents to ER via Ambulatory with complaints of Cold vinny Symptoms. 09:21 The patient or guardian reports airway noise, cough, described as mild. Onset: The vinny symptoms/episode began/occurred 3 day(s) ago. Modifying factors: The symptoms are alleviated by nothing. the symptoms are aggravated by nothing. The patient or guardian reports flu symptoms. Severity of symptoms: At their worst the symptoms were mild, in the emergency department the symptoms are unchanged. Associated signs and symptoms: Pertinent positives: rhinorrhea, sore throat. Modifying factors: The symptoms are alleviated by nothing, the symptoms are aggravated by cold weather, exertion. Severity of symptoms: At their worst the symptoms were mild in the emergency department the symptoms are unchanged. Associated signs and symptoms: The patient has no apparent associated signs or symptoms. Historical: - Allergies: 08:20 No Known Allergies; aa5 - Home Meds: 08:20 None [Active]; aa5 - PMHx: 08:20 Gestational hypertension; aa5 - PSHx: 08:20 ; aa5 - Immunization history:: Adult Immunizations unknown. - Social history:: Smoking status: Patient reports the use of cigarette tobacco products, smokes one-half pack cigarettes per day. - Family history:: not pertinent. ROS: 09:21 Constitutional: Negative for fever, chills, and weight loss, Eyes: Negative for injury, vinny pain, redness, and discharge, ENT: Negative for injury, pain, and discharge, Neck: Negative for injury, pain, and swelling, Cardiovascular: Negative for chest pain, palpitations, and edema, Abdomen/GI: Negative for abdominal pain, nausea, vomiting, diarrhea, and constipation, Back: Negative for injury and pain, : Negative for injury, bleeding, discharge, and swelling, MS/Extremity: Negative for injury and deformity, Skin: Negative for injury, rash, and discoloration, Neuro: Negative for headache, weakness, numbness, tingling, and seizure, Psych: Negative for depression, anxiety, suicide ideation, homicidal ideation, and hallucinations, Allergy/Immunology: Negative for hives, rash, and allergies, Endocrine: Negative for neck swelling, polydipsia, polyuria, polyphagia, and marked weight changes, Hematologic/Lymphatic: Negative for swollen nodes, abnormal bleeding, and unusual bruising. 09:21 Respiratory: Positive for cough, "sounds productive". Exam: 09:21 Constitutional: This is a well developed, well nourished patient who is awake, alert, vinny and in no acute distress. Head/Face: Normocephalic, atraumatic. Eyes: Pupils equal round and reactive to light, extra-ocular motions intact. Lids and lashes normal. Conjunctiva and sclera are non-icteric and not injected. Cornea within normal limits. Periorbital areas with no swelling, redness, or edema. ENT: Nares patent. No nasal discharge, no septal abnormalities noted. Tympanic membranes are normal and external auditory canals are clear. Oropharynx with no redness, swelling, or masses, exudates, or evidence of obstruction, uvula midline. Mucous membranes moist. Neck: Trachea midline, no thyromegaly or masses palpated, and no cervical lymphadenopathy. Supple, full range of motion without nuchal rigidity, or vertebral point tenderness. No Meningismus. Chest/axilla: Normal chest wall appearance and motion. Nontender with no deformity. No lesions are appreciated. Cardiovascular: Regular rate and rhythm with a normal S1 and S2. No gallops, murmurs, or rubs. Normal PMI, no JVD. No pulse deficits. Abdomen/GI: Soft, non-tender, with normal bowel sounds. No distension or tympany. No guarding or rebound. No evidence of tenderness throughout. Back: No spinal tenderness. No costovertebral tenderness. Full range of motion. Skin: Warm, dry with normal turgor. Normal color with no rashes, no lesions, and no evidence of cellulitis. MS/ Extremity: Pulses equal, no cyanosis. Neurovascular intact. Full, normal range of motion. Neuro: Awake and alert, GCS 15, oriented to person, place, time, and situation. Cranial nerves II-XII grossly intact. Motor strength 5/5 in all extremities. Sensory grossly intact. Cerebellar exam normal. Normal gait. Psych: Awake, alert, with orientation to person, place and time. Behavior, mood, and affect are within normal limits. 09:21 Respiratory: the patient does not display signs of respiratory distress, Respirations: no acute changes, Breath sounds: no acute changes, rhonchi, that are mild, are scattered. 09:23 Musculoskeletal/extremity: Extremities: all appear grossly normal, with no appreciated vinny pain with palpation, ROM: no acute changes, intact in all extremities, full active range of motion, full passive range of motion, Circulation is intact in all extremities. Sensation intact. Compartment Syndrome exam of affected extremity: is normal. DVT Exam: No signs of deep vein thrombosis. no pain, no swelling, no tenderness, negative Homans' sign noted on exam, no appreciated bluish discoloration, no erythema, no increased warmth. Vital Signs: 08:20 BP 130 / 95; Pulse 82; Resp 16 S; Temp 98.2(O); Pulse Ox 99% on R/A; Weight 88.45 kg aa5 (R); Height 5 ft. 9 in. (175.26 cm) (R); Pain 5/10; 08:20 Body Mass Index 28.80 (88.45 kg, 175.26 cm) aa5 MDM: 08:24 Patient medically screened. [facility] 09:24 Differential diagnosis: bronchitis, flu, URI. Antibiotic administration: The patient is [facility] discharged and will get outpatient antibiotics, Zithromax. Differential Diagnosis: Bronchitis Influenza Upper Respiratory Infection Sinusitis Pharyngitis Pneumonia. Data reviewed: vital signs, nurses notes, lab test result(s). 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 Pulse oximetry: on room air is 99 %. Counseling: I had a detailed discussion with the patient and/or guardian regarding: the historical points, exam findings, and any diagnostic results supporting the discharge/admit diagnosis, the need for outpatient follow up, for definitive care, a family practitioner. 08/30 09:06 Order name: Flu [facility] 08/30 09:06 Order name: COVID-19 [facility] Administered Medications: 09:39 Not Given (pt left before administration): Zithromax 500 mg PO once jl7 Disposition: 08/30/20 09:25 Discharged to Home. Impression: Acute upper respiratory infection, unspecified, Cough. - Condition is Stable. - Discharge Instructions: Upper Respiratory Infection, Adult, Cool Mist Vaporizer, Upper Respiratory Infection, Adult, [id number], Cough, Adult, Odhz-wy-Vksc, Cough, Adult. - Prescriptions for Bromfed DM 2- 30-10 mg/5 mL Oral syrup - take 10 milliliter by ORAL route every 6 hours; 160 milliliter. Zithromax Z- Ronnie 250 mg Oral Tablet - take 1 tablet by ORAL route as directed for 5 days Day 1 - take two (2) tablets one time. Day 2, 3, 4 , 5 take one (1) tablet once daily.; 6 tablet. Medrol (Ronnie) 4 mg Oral Tablets, Dose Pack - take 1 tablet by ORAL route as directed - follow package instructions; 1 packet. - Medication Reconciliation Form, Thank You Letter, Antibiotic Education, Prescription Opioid Use form. - Follow up: Private Physician; When: 2 - 3 days; Reason: Recheck today's complaints, Continuance of care, Re-evaluation by your physician. - Problem is new. - Symptoms have improved. Signatures: Dispatcher [employer] EDJose Francisco Bay MD MD cha Calderon, Audri, RN RN aa5 Zoë Quijano RN RN jl7 Corrections: (The following items were deleted from the chart) 09:40 09:25 08/30/2020 09:25 Discharged to Home. Impression: Acute upper respiratory jl7 infection, unspecified; Cough. Condition is Stable. Forms are Medication Reconciliation Form, Thank You Letter, Antibiotic Education, Prescription Opioid Use. Follow up: Private Physician; When: 2 - 3 days; Reason: Recheck today's complaints, Continuance of care, Re-evaluation by your physician. Problem is new. Symptoms have improved. vinny
[2020-09-03 14:34] VITALS: BP 130/95; TEMP 98.2; O2SAT 99
== END 2020-08-30 09:40 | disposition home or self-care (01) ==
LOC: ER 08:14
DX: J06.9 Acute upper respiratory infection, unspecified (principal); Z20.828 Contact with and (suspected) exposure to other viral communicable diseases; F17.210 Nicotine dependence, cigarettes, uncomplicated
CPT/HCPCS: 87804; 99283; U0002

== ENCOUNTER 2020-10-03 12:06 | Emergency (ER) | payer SELFPAY ==
--- OUTSIDE RECORDS SUMMARY | 2020-10-03 12:13 | XMS REPORT | Continuity of Care Document ---
:1970 Author Organization [facility] t Address [address] [place] [address] Care Team Providers Name Role Phone Mariana [...] Facility Department ID 2020-06-07 2020-06-07 Emergency Wanda RUST [id number] 13:10:00 13:42:00 Erick Grace [id number] [place] [id number] [place] [phone] [id number] Results This patient has no known results.
[2020-10-03 14:30] LABS: Absolute Lymphocytes (CBC) 1.9 K/uL (0.7-4.9); Basophils % 0.9 % (0-1.3); Hematocrit 47.2 % (36.0-45.0); Lymphocytes % 34.1 % (15.3-44.8); MPV 7.1 fL (7.6-11.3); RBC Red Blood Cell Count 5.19 M/uL (3.86-4.86)
[2020-10-03] MEDS ORDERED: DIPHENHYDRAMINE 50 MG/ML VIAL ONE (14:40)
[2020-10-03] MEDS ORDERED: FAMOTIDINE 20 MG/2 ML VIAL IV ONE (14:40)
[2020-10-03 14:46] LABS: ALT/SGPT 23 U/L (12-78); AST/SGOT 14 U/L (15-37); Albumin 4.3 g/dL (3.4-5.0); Alkaline Phosphatase 57 U/L (45-117); BUN Blood Urea Nitrogen 15 mg/dL (7-18); Bicarbonate 30 mmol/L (21-32); Bilirubin Direct < 0.1 mg/dL (0-0.2); Bilirubin Total 0.4 mg/dL (0.2-1.0); Glucose Level 88 mg/dL (74-106); Lipase 104 U/L (73-393); Potassium 3.6 mmol/L (3.5-5.1); Protein, Total 7.6 g/dL (6.4-8.2); Sodium Level 141 mmol/L (136-145)
[2020-10-03] MEDS ORDERED: dexAMETHasone 10 MG/ML VIAL ONE (15:18)
[2020-10-03] MEDS ORDERED: hydrOXYzine HCL 25 MG TAB ONE (15:37)
--- NOTE | 2020-10-03 16:44 | ER ---
Nurse's Notes [facility] Name: Alex Sunshine Age: 50 yrs Sex: Female : 1970 Arrival Date: 10/03/2020 Time: 12:08 Bed 25 Private MD: Diagnosis: Rash and other nonspecific skin eruption Presentation: 10/03 12:26 Chief complaint: Patient states: 1. Itching with rash all over for 3 weeks. Tried ll1 calamine, no help. 2. Intermittent chest pain since yesterday. Slight SOB. No cough or fever. No pain at this time. More stress lately than usual. Coronavirus screen: Client denies travel out of the [place] in the last 14 days. difficulty breathing, Client presents with at least one sign or symptom that may indicate coronavirus-19. Standard/surgical mask placed on the client. The client reports previous COVID testing was negative. Ebola Screen: Patient denies travel to an Ebola-affected area in the 21 days before illness onset. Onset: The symptoms/episode began/occurred 3 week(s) ago. Anaphylaxis evaluation, no signs or symptoms of anaphylaxis were noted. Initial Sepsis Screen: Does the patient meet any 2 criteria? No. Patient's initial sepsis screen is negative. Does the patient have a suspected source of infection? No. Patient's initial sepsis screen is negative. Risk Assessment: Do you want to hurt yourself or someone else? Patient reports no desire to harm self or others. Onset of symptoms was September 12, 2020. 12:26 Method Of Arrival: Ambulatory ll1 12:26 Acuity: MARIE 3 ll1 Triage Assessment: 12:29 General: Appears in no apparent distress. Behavior is calm, cooperative, appropriate ll1 for age. Pain: Denies pain. Cardiovascular: Reports chest pain, Heart tones S1 S2 Capillary refill < 3 seconds Clubbing of nail beds is absent JVD is absent Patient's skin is warm and dry. Derm: Rash noted that is itchy, red, Reports rash with itching all over. Historical: - Allergies: 12:25 No Known Allergies; ll1 - PMHx: 12:25 gestational hypertension; ll1 - PSHx: 12:25 ; ll1 - Immunization history:: Flu vaccine is not up to date. - Social history:: Smoking status: Patient reports the use of cigarette tobacco products, smokes one-half pack cigarettes per day. Screenin:03 Abuse screen: Denies threats or abuse. Nutritional screening: No deficits noted. em Tuberculosis screening: No symptoms or risk factors identified. Fall Risk None identified. Assessment: 14:35 General: Appears in no apparent distress. comfortable, Behavior is calm, cooperative, em appropriate for age, Denies fever. Pain: Denies pain. Neuro: Level of Consciousness is awake, alert, obeys commands, Oriented to person, place, time, situation, Appropriate for age. Cardiovascular: Capillary refill < 3 seconds Patient's skin is warm and dry. Respiratory: Reports shortness of breath Airway is patent Respiratory effort is even, unlabored, Respiratory pattern is regular, symmetrical, Breath sounds are clear bilaterally. Denies cough. Derm: Skin is intact, is healthy with good turgor, Skin is pink, warm \T\ dry. Musculoskeletal: Capillary refill < 3 seconds, Range of motion: intact in all extremities. 15:20 Reassessment: Patient appears in no apparent distress at this time. Patient and/or em family updated on plan of care and expected duration. Pain level reassessed. Patient is alert, oriented x 3, equal unlabored respirations, skin warm/dry/pink. no improvement in symptoms. 16:30 Reassessment: Patient appears in no apparent distress at this time. Patient and/or em family updated on plan of care and expected duration. Pain level reassessed. Patient is alert, oriented x 3, equal unlabored respirations, skin warm/dry/pink. Patient states symptoms have improved. Vital Signs: 12:26 BP 140 / 97; Pulse 71; Resp 16; Temp 97.3; Pulse Ox 100% on R/A; Weight 86.18 kg; ll1 Height 5 ft. 9 in. (175.26 cm); Pain 0/10; 15:13 BP 142 / 77; Pulse 64; Resp 18; Pulse Ox 99% on R/A; em 12:26 Body Mass Index 28.06 (86.18 kg, 175.26 cm) ll1 ED Course: 12:08 Patient arrived in ED. ds1 12:25 Arm band placed on. ll1 12:29 Triage completed. ll1 13:53 Todd Bullard PA is PHCP. [facility] 13:53 Ramsey Carpio MD is Attending Physician. [facility] 13:57 Gage Rodriguez, RN is Primary Nurse. em 14:03 Patient has correct armband on for positive identification. Bed in low position. Call em light in reach. Adult w/ patient. 14:20 Initial lab(s) drawn, by me, sent to lab. Inserted saline lock: 20 gauge in left jp3 antecubital area, using aseptic technique. Blood collected. Patient maintains SpO2 saturation greater than 95% on room air. 14:24 Pulse ox on. NIBP on. jp3 16:43 Chacorta Villafana MD is Referral Physician. m 16:59 No provider procedures requiring assistance completed. IV discontinued, intact, em bleeding controlled, No redness/swelling at site. Pressure dressing applied. Administered Medications: 14:30 Drug: diphenhydrAMINE 25 mg Route: IVP; Site: left antecubital; em 15:10 Follow up: Response: No adverse reaction; No change in condition em 14:32 Drug: Pepcid 20 mg Route: IVP; Site: left antecubital; em 15:10 Follow up: Response: No adverse reaction; No change in condition em 15:12 Drug: Decadron - Dexamethasone 10 mg Route: IVP; Site: left antecubital; em 15:25 Follow up: Response: No adverse reaction em 15:26 Drug: hydrOXYzine 50 mg Route: PO; em 16:18 Follow up: Response: No adverse reaction; Marked relief of symptoms em Outcome: 16:42 Discharge ordered by MD. m 16:59 Discharged to home ambulatory. em 16:59 Condition: stable 16:59 Discharge instructions given to patient, Instructed on discharge instructions, follow up and referral plans. medication usage, Demonstrated understanding of instructions, follow-up care, medications, Prescriptions given X 3. 17:00 Patient left the ED. em Signatures: Todd Bullard PA PA [facility] Gage Rodriguez, RN RN em Melinda Best ds1 Thiago Ewing jp3 Amrik Riddle RN RN ll1
--- NOTE | 2020-10-03 16:44 | EDPHYS ---
Physician Documentation [facility] Name: Alex Sunshine Age: 50 yrs Sex: Female : 1970 Arrival Date: 10/03/2020 Time: 12:08 Bed 25 Private MD: ED Physician Ramsey Carpio HPI: 10/03 14:22 This 50 yrs old Female presents to ER via Ambulatory with complaints of jmm Itching. 14:22 The patient's rash thought to be caused by. Onset: The symptoms/episode began/occurred jmm gradually, 3 week(s) ago. Associated signs and symptoms: Pertinent positives: itching, abdominal pain, Pertinent negatives: fever, swelling of lips, swelling of throat, swelling of tongue, vomiting, wheezing. Historical: - Allergies: 12:25 No Known Allergies; ll1 - PMHx: 12:25 gestational hypertension; ll1 - PSHx: 12:25 ; ll1 - Immunization history:: Flu vaccine is not up to date. - Social history:: Smoking status: Patient reports the use of cigarette tobacco products, smokes one-half pack cigarettes per day. ROS: 14:22 Constitutional: Negative for fever, chills, and weight loss, Cardiovascular: Negative jmm for chest pain, palpitations, and edema, Respiratory: Negative for shortness of breath, cough, wheezing, and pleuritic chest pain. 14:22 Abdomen/GI: Positive for abdominal pain, Negative for nausea and vomiting, diarrhea. 14:22 Skin: Positive for rash. 14:22 All other systems are negative. Exam: 14:22 Constitutional: This is a well developed, well nourished patient who is awake, alert, jmm and in no acute distress. Head/Face: atraumatic. Eyes: EOMI, no conjunctival erythema appreciated ENT: Moist Mucus Membranes Neck: Trachea midline, Supple Chest/axilla: Normal chest wall appearance and motion. Cardiovascular: Regular rate and rhythm. No edema appreciated Respiratory: Normal respirations, no respiratory distress appreciated Abdomen/GI: Non distended, soft Back: Normal ROM 14:22 Skin: generalized erythematous rash noted to the chest, arms, abdomen. Vital Signs: 12:26 BP 140 / 97; Pulse 71; Resp 16; Temp 97.3; Pulse Ox 100% on R/A; Weight 86.18 kg; ll1 Height 5 ft. 9 in. (175.26 cm); Pain 0/10; 15:13 BP 142 / 77; Pulse 64; Resp 18; Pulse Ox 99% on R/A; em 12:26 Body Mass Index 28.06 (86.18 kg, 175.26 cm) ll1 MDM: 14:09 Patient medically screened. [facility] 14:22 Data reviewed: vital signs, nurses notes. Counseling: I had a detailed discussion with [facility] the patient and/or guardian regarding: the historical points, exam findings, and any diagnostic results supporting the discharge/admit diagnosis. 16:40 Counseling: I had a detailed discussion with the patient and/or guardian regarding: lab [facility] results, the need for outpatient follow up, to return to the emergency department if symptoms worsen or persist or if there are any questions or concerns that arise at home. ED course: Labs wnl. Patient advised to follow up with Derm for further evaluation. Patient also complains of increased anxiety/depression due to family situation. Denies SI or HI. Will give follow up information for psychiatry. Patient is otherwise given strict return precautions Patient understood and agrees with the plan of care. . 10/03 14:10 Order name: Basic Metabolic Panel; Complete Time: 14:50 [facility] 10/03 14:10 Order name: CBC with Diff; Complete Time: 14:50 [facility] 10/03 14:10 Order name: Hepatic Function; Complete Time: 14:50 [facility] 10/03 14:10 Order name: Lipase; Complete Time: 14:50 [facility] 10/03 12:41 Order name: EKG - Nurse/Tech; Complete Time: 12:41 3 10/03 14:10 Order name: IV Saline Lock; Complete Time: 14:24 [facility] 10/03 14:10 Order name: Labs collected and sent; Complete Time: 14:24 [facility] Administered Medications: 14:30 Drug: diphenhydrAMINE 25 mg Route: IVP; Site: left antecubital; em 15:10 Follow up: Response: No adverse reaction; No change in condition em 14:32 Drug: Pepcid 20 mg Route: IVP; Site: left antecubital; em 15:10 Follow up: Response: No adverse reaction; No change in condition em 15:12 Drug: Decadron - Dexamethasone 10 mg Route: IVP; Site: left antecubital; em 15:25 Follow up: Response: No adverse reaction em 15:26 Drug: hydrOXYzine 50 mg Route: PO; em 16:18 Follow up: Response: No adverse reaction; Marked relief of symptoms em Disposition: 10/04 14:23 Co-signature as Attending Physician, Ramsey Carpio MD I agree with the assessment and kdr plan of care. Disposition: 10/03/20 16:42 Discharged to Home. Impression: Rash and other nonspecific skin eruption. - Condition is Stable. - Discharge Instructions: Rash. - Prescriptions for Elimite 5 % Topical Cream - apply 1 application by TOPICAL route one time Wash after 12 hours.; 60 gram. Hydroxyzine HCl 50 mg Oral Tablet - take 1 tablet by ORAL route every 8 hours As needed; 20 tablet. Prednisone 20 mg Oral Tablet - take 3 tablet by ORAL route once daily for 5 days; 15 tablet. - Medication Reconciliation Form, Thank You Letter, Antibiotic Education, Prescription Opioid Use form. - Follow up: Private Physician; When: 2 - 3 days; Reason: Recheck today's complaints, Continuance of care, Re-evaluation by your physician. Follow up: Chacorta Villafana MD; When: 2 - 3 days; Reason: Recheck today's complaints, Continuance of care, Re-evaluation by your physician. Signatures: Dispatcher [employer] Ramsey Mullen MD MD [facility] Todd Bullard PA PA [facility] Gage Rodriguez, RN RN Stacey Cochran [facility] Amrik Riddle RN RN ll1 Corrections: (The following items were deleted from the chart) 10/03 16:37 15:41 Pelvis Wo Cont ordered. [facility] 16:43 16:42 10/03/2020 16:42 Discharged to Home. Impression: Rash and other nonspecific skin jmm eruption. Condition is Stable. Forms are Medication Reconciliation Form, Thank You Letter, Antibiotic Education, Prescription Opioid Use. Follow up: Private Physician; When: 2 - 3 days; Reason: Recheck today's complaints, Continuance of care, Re-evaluation by your physician. [facility] 17:00 16:43 10/03/2020 16:42 Discharged to Home. Impression: Rash and other nonspecific skin em eruption. Condition is Stable. Discharge Instructions: Rash. Prescriptions for Elimite 5 % Topical Cream - apply 1 application by TOPICAL route one time Wash after 12 hours.; 60 gram, Hydroxyzine HCl 50 mg Oral Tablet - take 1 tablet by ORAL route every 8 hours As needed; 20 tablet, Prednisone 20 mg Oral Tablet - take 3 tablet by ORAL route once daily for 5 days; 15 tablet. and Forms are Medication Reconciliation Form, Thank You Letter, Antibiotic Education, Prescription Opioid Use. Follow up: Private Physician; When: 2 - 3 days; Reason: Recheck today's complaints, Continuance of care, Re-evaluation by your physician. Follow up: Chacorta Villafana; When: 2 - 3 days; Reason: Recheck today's complaints, Continuance of care, Re-evaluation by your physician. domi
[2020-10-03 17:25] VITALS: TEMP 97.3
[2020-10-03 17:26] VITALS: BP 142/77; O2SAT 99
== END 2020-10-03 17:00 | disposition home or self-care (01) ==
LOC: ER 12:06
DX: R21 Rash and other nonspecific skin eruption (principal); F17.210 Nicotine dependence, cigarettes, uncomplicated
CPT/HCPCS: 36415; 80048; 80076; 83690; 85025; 93005; 96374; 96375; 99284; J1100; J1200

== ENCOUNTER 2022-05-05 09:01 | Emergency (ER) | payer SELFPAY ==
--- OUTSIDE RECORDS SUMMARY | 2022-05-05 09:04 | XMS REPORT | Continuity of Care Document ---
:1970 Author Organization [facility] t Address [address] [place] [address] Care Team Providers Name Role Phone JUAN ALBERTOMIRA ROMAN TALBOT Attending Clinician Unavailable Erick Lowe Attending Clinician Problems This patient has no known problems. Allergies, Adverse Reactions, Alerts Allergy Allergy Status Severity Reaction(s) Onset Inactive Treating Comm ents Source Name Type Date Date Clinician NO KNOWN Drug Active [facility] ALLERGIE Class [facility] Medications This patient has no known medications. Procedures This patient has no known procedures. Encounters Start End Encounter Admission Attending Care Care Encounter Source Date/Time Date/Time Type Type Clinicians Facility Department ID 2021-03-25 2021-03-25 Outpatient Parris ARIAS [facility] [id number] [facility] 09:30:00 09:30:00 ROMAN [id number] [facility] 2021-02-25 2021-02-25 Outpatient Parris ARIAS [facility] [id number] [facility] 13:45:00 13:45:00 ROMAN [facility] 2020-06-07 2020-06-07 Emergency Wanda [facility] [id number] 13:10:00 13:42:00 Erick Grace [id number] [place] [id number] [place] [id number] 2020-06-07 2020-06-07 Emergency X [facility] ERT [id number] [facility] 12:51:00 12:51:00 [facility] Results This patient has no known results.
--- NOTE | 2022-05-05 09:26 | EDPHYS ---
Physician Documentation [facility] Name: Alex Sunshine Age: 51 yrs Sex: Female : 1970 Arrival Date: 05/05/2022 Time: 09:03 Bed 1 Private MD: ED Physician Rory Stephenson HPI: 05/05 09:16 This 51 yrs old Female presents to ER via Ambulatory with complaints of L Ear jl9 Pain. Patient reports just getting over a cold last week.. 09:16 The patient presents with pain, a " 4" out of "10". The complaints affect the left ear. jl9 Onset: The symptoms/episode began/occurred 2 day(s) ago. Modifying factors: The symptoms are alleviated by nothing, the symptoms are aggravated by nothing. Associated signs and symptoms: Pertinent positives: Pertinent negatives:. 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 - Social history:: Smoking status: unknown. ROS: 09:17 Constitutional: Negative for fever, chills, and weight loss, Eyes: Negative for injury, jl9 pain, redness, and discharge. 09:17 Neck: Negative for injury, pain, and swelling, Cardiovascular: Negative for chest pain, palpitations, and edema, Respiratory: Negative for shortness of breath, cough, wheezing, and pleuritic chest pain, Abdomen/GI: Negative for abdominal pain, nausea, vomiting, diarrhea, and constipation, Back: Negative for injury and pain, : Negative for injury, bleeding, discharge, and swelling, MS/Extremity: Negative for injury and deformity, Skin: Negative for injury, rash, and discoloration, Neuro: Negative for headache, weakness, numbness, tingling, and seizure, Psych: Negative for depression, anxiety, suicide ideation, homicidal ideation, and hallucinations, Allergy/Immunology: Negative for hives, rash, and allergies, Endocrine: Negative for neck swelling, polydipsia, polyuria, polyphagia, and marked weight changes, Hematologic/Lymphatic: Negative for swollen nodes, abnormal bleeding, and unusual bruising. 09:17 ENT: Positive for ear pain. Exam: 09:17 Constitutional: This is a well developed, well nourished patient who is awake, alert, jl9 and in no acute distress. Head/Face: Normocephalic, atraumatic. Eyes: Pupils equal round and reactive to light, extra-ocular motions intact. Lids and lashes normal. Conjunctiva and sclera are non-icteric and not injected. Cornea within normal limits. Periorbital areas with no swelling, redness, or edema. 09:17 Neck: Trachea midline, no thyromegaly or masses palpated, and no cervical lymphadenopathy. Supple, full range of motion without nuchal rigidity, or vertebral point tenderness. No Meningismus. Chest/axilla: Normal chest wall appearance and motion. Nontender with no deformity. No lesions are appreciated. Cardiovascular: Regular rate and rhythm with a normal S1 and S2. No gallops, murmurs, or rubs. Normal PMI, no JVD. No pulse deficits. Respiratory: Lungs have equal breath sounds bilaterally, clear to auscultation and percussion. No rales, rhonchi or wheezes noted. No increased work of breathing, no retractions or nasal flaring. Abdomen/GI: Soft, non-tender, with normal bowel sounds. No distension or tympany. No guarding or rebound. No evidence of tenderness throughout. Back: No spinal tenderness. No costovertebral tenderness. Full range of motion. Skin: Warm, dry with normal turgor. Normal color with no rashes, no lesions, and no evidence of cellulitis. MS/ Extremity: Pulses equal, no cyanosis. Neurovascular intact. Full, normal range of motion. Neuro: Awake and alert, GCS 15, oriented to person, place, time, and situation. Cranial nerves II-XII grossly intact. Motor strength 5/5 in all extremities. Sensory grossly intact. Cerebellar exam normal. Normal gait. Psych: Awake, alert, with orientation to person, place and time. Behavior, mood, and affect are within normal limits. 09:17 ENT: External ear(s): are unremarkable, Ear canal(s): are normal, TM's: erythema, Examination of the other ear shows no obvious abnormality. Vital Signs: 09:54 BP 127 / 80; Pulse 78; Resp 16; Pulse Ox 100% on R/A; iw MDM: 09:16 Patient medically screened. jl9 09:18 Data reviewed: vital signs, nurses notes. jl9 09:23 Counseling: I had a detailed discussion with the patient and/or guardian regarding: the jl9 historical points, exam findings, and any diagnostic results supporting the discharge/admit diagnosis, the need for outpatient follow up. Administered Medications: 09:45 Drug: Ibuprofen 600 mg Route: PO; 3 10:09 Follow up: Response: No adverse reaction 3 Disposition: 19:26 Co-signature as Attending Physician, Rory Stephenson DO I agree with the assessment and wa3 plan of care. Disposition Summary: 05/05/22 09:24 Discharge Ordered Location: Home jl9 Condition: Stable jl9 Diagnosis - Otitis media, unspecified, left ear jl9 Followup: jl9 - With: Private Physician - When: 1 - 2 days - Reason: Recheck today's complaints, Continuance of care, Re-evaluation by your physician Discharge Instructions: - Discharge Summary Sheet jl9 - Otitis Media, Adult, Izdt-sw-Jwze jl9 Forms: - Medication Reconciliation Form jl9 - Thank You Letter jl9 - Antibiotic Education jl9 - Prescription Opioid Use jl9 Prescriptions: - Amoxicillin 875 mg Oral Tablet - take 1 tablet by ORAL route every 12 hours for 10 days; 20 tablet; Refills: 0, jl9 Product Selection Permitted Signatures: Rory Stephenson DO DO ms3 Siria Garcia RN RN 3 Gideon Dasilva jl9 Corrections: (The following items were deleted from the chart) 09:24 09:16 This 51 yrs old Female presents to ER via Ambulatory with complaints of jl9 Ear Pain. jl9
[2022-05-05] MEDS ORDERED: IBUPROFEN 200 MG TAB PO ONE (09:56)
[2022-05-05] MEDS ORDERED: IBUPROFEN 400 MG TAB ONE (09:56)
--- NOTE | 2022-05-05 10:09 | ER ---
Nurse's Notes [facility] Name: Alex Sunshine Age: 51 yrs Sex: Female : 1970 Arrival Date: 05/05/2022 Time: 09:03 Bed 1 Private MD: Diagnosis: Otitis media, unspecified, left ear Presentation: 05/05 09:54 Chief complaint: Patient states: left ear pain X 1 week. Coronavirus screen: At this iw time, the client does not indicate any symptoms associated with coronavirus-19. Ebola Screen: Patient negative for fever greater than or equal to 101.5 degrees Fahrenheit, and additional compatible Ebola Virus Disease symptoms Patient denies exposure to infectious person. Patient denies travel to an Ebola-affected area in the 21 days before illness onset. No symptoms or risks identified at this time. Initial Sepsis Screen: Does the patient meet any 2 criteria? No. Patient's initial sepsis screen is negative. Does the patient have a suspected source of infection? No. Patient's initial sepsis screen is negative. Risk Assessment: Do you want to hurt yourself or someone else? Patient reports no desire to harm self or others. Onset of symptoms was April 28, 2022. 09:54 Method Of Arrival: Ambulatory iw 09:54 Acuity: MARIE 4 iw Triage Assessment: 10:11 General: Appears in no apparent distress. comfortable, Behavior is calm, cooperative, eh3 appropriate for age. 10:11 Pain: Denies pain. EENT: No deficits noted. 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 - Social history:: Smoking status: unknown. Screenin:10 Abuse screen: Denies threats or abuse. Denies injuries from another. Nutritional eh3 screening: No deficits noted. Tuberculosis screening: No symptoms or risk factors identified. Fall Risk None identified. Vital Signs: 09:54 BP 127 / 80; Pulse 78; Resp 16; Pulse Ox 100% on R/A; iw ED Course: 09:03 Patient arrived in ED. rg4 09:04 Gideon Dasilva is PHCP. jl9 09:04 Rory Stephenson DO is Attending Physician. jl9 09:30 Tanisha Blanco, RN is Primary Nurse. iw 09:54 Arm band placed on. iw 09:55 Triage completed. iw 10:10 Patient has correct armband on for positive identification. Call light in reach. eh3 10:10 No provider procedures requiring assistance completed. Patient did not have IV access eh3 during this emergency room visit. Administered Medications: 09:45 Drug: Ibuprofen 600 mg Route: PO; eh3 10:09 Follow up: Response: No adverse reaction eh3 Medication: 10:11 VIS not applicable for this client. eh3 Outcome: 09:24 Discharge ordered by . jl9 10:08 Patient left the ED. eh3 10:09 Discharge instructions given to patient, Instructed on discharge instructions, follow eh3 up and referral plans. medication usage, Demonstrated understanding of instructions, follow-up care, medications, Prescriptions given X 1. 10:10 Discharged to home ambulatory. eh3 10:10 Condition: stable Signatures: Tanisha Blanco, Kassi Sky RN 4 Siria Garcia RN RN [facility] Gideon Dasilva 9
[2022-05-05 11:00] VITALS: BP 127/80; O2SAT 100
== END 2022-05-05 10:08 | disposition home or self-care (01) ==
LOC: ER 09:01
DX: H66.92 Otitis media, unspecified, left ear (principal)

== ENCOUNTER 2024-02-14 15:48 | Emergency (ER) | payer OTHER, SELFPAY ==
--- OUTSIDE RECORDS SUMMARY | 2024-02-14 15:52 | XMS REPORT | Continuity of Care Document ---
Author Name Unknown Address [address] [place] [address] [facility] thconnect Address [address] [place] [address] Care Team Providers Care [employer] Name Role Phone PCP, PATIENT DOES NOT HAVE A Primary Care Physic kwasi Unavailable Jose MCKEE Attending Clinician Unavailable Jose Briones Attending Clinician [phone] YOON PRESTON Attending Clinician Unavailab Yoon Meza MD Attending Clinician [phone] ROMAN ARIAS Attending Clinician Erick Wolf Attending Clinician [phone] Jose MCKEE Admitting Clinician Unavailable YOON PRESTON Admitting Clinician Unavailab carolann Payrachel Payer Name Policy Type Policy Number Effective Date Expirati on Date Source [facility] [id number] 2023-09-19 00:00:00 Problems Condition Name Condition Details Condition Category Status Onset Date Resolution Date Last Treatment Date Treating Clinician Comments Source Left ovarian cyst Left ovarian cyst Disease Active 03-22 00:00: 00 [facility] DDD (degenerat ade disc disease), lumbar DDD (degenerat ade disc disease), lumbar Disease Active 03-22 00:00: 00 [facility] Depression , unspecifie d depression type Depression , unspecifie d depression type Disease Active 03-22 00:00: 00 [facility] Allergies, Adverse Reactions, Alerts Allergy Name Allergy Type Status Severity Reaction(s) Onset Date Inactive Date Treating Clinician Comments Source NO KNOWN ALLERGIE S Drug Class Active [facility] Social History Social Habit Start Date Stop Date Quantity Comments Source History of tobacco use Cigarette Smoker [facility] Alcohol intake 2023-10-01 00:00:00 2023-10-01 00:00:00 .86 /d [facility] History of Social function 2023-10-01 00:00:00 2023-10-01 00:00:00 [facility] Alcohol Comment 2023-03-22 00:00:00 2023-03-22 00:00:00 cut down to rarely in 2021 [facility] Cigarettes smoked current (pack per day) - Reported 2021-02-25 00:00:00 2021-02-25 00:00:00 [facility] Tobacco use and exposure 2021-02-25 00:00:00 2021-02-25 00:00:00 Smokeless tobacco non-user [facility] Sex Ass[birth year] At 1970 00:00:00 1970 00:00:00 [facility] Smoking Status Start Date Stop Date Source Smokes tobacco daily 2021-02-25 00:00:00 [facility] Medications Ordered Medication Name Filled Medication Name Start Date Stop Date Current Medication? Ordering Clinician Indication Dosage Frequency Signature (SIG) Comments Components Source maalox:diph enhydrAMINE :lidocaine 2 % viscous 1:1:1 (FIRST-MOUT HWASH BLM) oral suspension 15 mL 10-02 02:15: 00 10-02 01:14 :00 No 15mL 15 mL, Oral (Swish & Swallow), ONCE, 1 dose, On 10/01/23 at 2015, Routine [facility] ketorolac (TORADOL) injection 15 mg 10-02 00:45: 00 10-02 00:45 :00 No 15mg 15 mg, Slow IV Push, ONCE, 1 dose, On 10/01/23 at 1845, JANA [facility] ondansetron (ZOFRAN (PF)) injection 4 mg 10-01 23:30: 00 10-01 23:08 :00 No 4mg 4 mg, Slow IV Push, ONCE, 1 dose, On 10/01/23 at 1730, JANA [facility] NaCl 0.9% (NS) bolus infusion 500 mL 10-01 22:30: 00 10-02 01:17 :00 No 500mL at 999 mL/hr, 500 mL, IV Infusion, ONCE, 1 dose, On 10/01/23 at 1630, STAT [facility] famotidine (PEPCID (PF)) injection 20 mg 10-01 22:30: 00 10-01 23:09 :00 No 20mg 20 mg, Slow IV Push, ONCE, 1 dose, On 10/01/23 at 1630, JANA [facility] famotidine (PEPCID) 40 mg tablet 10-01 00:00: 00 Yes [id number] 40mg Take 1 tablet by mouth in the morning. [facility] ketorolac (TORADOL) injection 30 mg 03-22 23:30: 00 03-22 22:39 :00 No 30mg 30 mg, Slow IV Push, ONCE, 1 dose, On Tue03/22/23 at 1830, Routine [facility] ondansetron (ZOFRAN (PF)) injection 4 mg 03-22 21:00: 00 03-22 21:00 :00 No 4mg 4 mg, Slow IV Push, ONCE, 1 dose, On Tue03/22/23 at 1600, JANA [facility] morpHINE (4 mg/mL) injection 4 mg 03-22 21:00: 00 03-22 21:00 :00 No 4mg 4 mg, Slow IV Push, ONCE, 1 dose, On Tue03/22/23 at 1600, STAT [facility] NaCl 0.9% (NS) bolus infusion 1,000 mL 03-22 19:15: 00 03-22 21:15 :00 No 1000mL at 999 mL/hr, 1,000 mL, IV Infusion, ONCE, 1 dose, On Tue03/22/23 at 1415, JANA [facility] iopamidol (ISOVUE 370-500 mL) injection 80 mL 03-22 19:00: 00 03-22 19:16 :00 No 80mL 80 mL, Intravenou s, ONCE, 1 dose, On Tue03/22/23 at 1400, Routine [facility] ondansetron (ZOFRAN (PF)) injection 4 mg 03-22 18:30: 00 03-22 18:40 :00 No 4mg 4 mg, Slow IV Push, ONCE, 1 dose, On Tue03/22/23 at 1330, JANA [facility] morpHINE (4 mg/mL) injection 4 mg 03-22 18:30: 00 03-22 18:40 :00 No 4mg 4 mg, Slow IV Push, ONCE, 1 dose, On Tue03/22/23 at 1330, STAT [facility] cyclobenzap rine 5 mg tablet 03-22 00:00: 00 Yes [id number] 5mg Take 1 tablet by mouth every 8 (eight) hours as needed for Muscle Spasms (severe pain). [facility] ibuprofen 800 mg tablet 03-22 00:00: 00 Yes [id number] 800mg Take 1 tablet by mouth every 6 (six) hours as needed for Pain (scale 4-6). [facility] DULoxetine 30 mg capsule 02-26 00:00: 00 Yes [id number] 30mg Take 1 capsule by mouth daily. [facility] etodolac 400 mg tablet 02-26 00:00: 00 Yes [id number] 400mg Take 1 tablet by mouth 2 (two) times daily. [facility] SERTraline 50 mg tablet 02-25 00:00: 00 Yes [id number] 50mg Take 1 tablet by mouth daily. [facility] Immunizations Ordered Immunization Name Filled Immunization Name Date Status Comments Source SARS-COV-2 COVID-19 PFIZER VACCINE 2021-05-06 00:00:00 Completed [facility] SARS-COV-2 COVID-19 PFIZER VACCINE Unknown Completed [facility] Vital Signs Vital Name Observation Time Observation Value Comments S trinidad Heart rate 2023-10-02 01:00:00 79 /min [facility] Body temperature 2023-10-02 01:00:00 37 Radha [facility] Respiratory rate 2023-10-02 01:00:00 18 /min [facility] Oxygen saturation in Arterial blood by Pulse oximetry 2023-10-02 01:00:00 99 /min [facility] Systolic blood pressure 2023-10-02 01:00:00 133 mm[Hg] [facility] Diastolic blood pressure 2023-10-02 01:00:00 82 mm[Hg] [facility] Body height 2023-10-01 21:45:00 170.2 cm [facility] Body weight 2023-10-01 21:45:00 102.059 kg [facility] BMI 2023-10-01 21:45:00 35.24 kg/m2 [facility] Systolic blood pressure 2023-03-22 22:45:00 108 mm[Hg] [facility] Diastolic blood pressure 2023-03-22 22:45:00 71 mm[Hg] [facility] Heart rate 2023-03-22 22:45:00 72 /min [facility] Respiratory rate 2023-03-22 22:45:00 16 /min [facility] Oxygen saturation in Arterial blood by Pulse oximetry 2023-03-22 22:45:00 99 /min [facility] BMI 2023-03-22 17:52:00 32.84 kg/m2 [facility] Body temperature 2023-03-22 17:52:00 37.22 Radha [facility] Body weight 2023-03-22 17:52:00 97.977 kg [facility] Procedures Procedure Date / Time Performed Performing Clinician Source US GALL BLADDER 2023-10-01 23:15:00 [facility] 2023-10-01 22:41:[address] [facility] MAGNESIUM 2023-10-01 22:41:[address] [facility] TROPONIN I 2023-10-01 22:41:[address] [facility] COMP. METABOLIC PANEL ([id number]) 2023-10-01 22:41:00 Jose Mckee [facility] CBC WITH DIFF 2023-10-01 22:41:00 [facility] 2023-10-01 22:41:00 [facility] CONSENT/REFUSAL FOR DIAGNOSIS AND TREATMENT 2023-10-01 21:42:42 Doctor Unassigned, [place] [facility] US OVARY TORSION 2023-03-22 22:19:16 Nathan Preston [facility] XR CHEST 2 VW 2023-03-22 19:17:00 Yoon Preston [facility] XR LUMBAR SPINE 2 VW 2023-03-22 19:17:00 Yoon Preston [facility] XR HIPS 3 VW RIGHT 2023-03-22 19:17:00 Julita Preston [facility] CT ABDOMEN PELVIS W CONTRAST 2023-03-22 19:00:00 Yoon Preston [facility] LIPASE 2023-03-22 18:39:00 Yoon Preston Un [facility] THYROID STIMULATING HORMONE 2023-03-22 18:39:00 Yoon Preston [facility] COMP. METABOLIC PANEL ([id number]) 2023-03-22 18:39:00 Yoon Preston [facility] CBC WITH DIFF 2023-03-22 18:39:00 Yoon Preston U [facility] URINALYSIS 2023-03-22 17:55:00 [facility] FOR [facility]AG[facility] AND TREATMENT 2023-03-22 17:47:57 Doctor Unassigned, [place] [facility] Encounters Start Date/Time End Date/Time Encounter Type Admission Type Attending Clinicians Care Facility Care Department Encounter ID Source 2023-10-01 15:56:00 2023-10-01 19:41:00 Emergency X Jose MCKEE [facility] ERT [id number] [facility] 2023-10-01 15:56:00 2023-10-01 19:41:00 Emergency Jose Mckee [facility] [id number] 4.2.7.2.686 [id number] [facility] 2023-03-22 13:04:00 2023-03-22 18:41:00 Emergency YOON OTT [facility] ERT [id number] [facility] 2023-03-22 13:04:00 2023-03-22 18:41:00 Emergency Yoon Preston [facility] [id number] 350.1.13.10 4.2.7.2.686 [id number] [facility] 2021-02-25 13:45:00 2021-02-25 13:45:00 Outpatient [facility]AN [facility]AS [facility] [id number] [facility] 2020-06-07 13:10:00 2020-06-07 13:42:00 Emergency Erick Muñoz [facility] [id number] 350.1.13.10 4.2.7.2.686 [id number] 2020-06-07 12:51:00 2020-06-07 12:51:00 Emergency X [facility] ERT [id number] [facility] Results Test Description Test Time Test Comments Results Resul t Comments Source US GALL BLADDER 2023-09-19 3 23:35:00 Exam: US GALL BLADDER Indication: Pain Technique: Real time shaw-scale ultrasound images of the right upperquadrant were obtained with color imaging when appropriate. Color Dopplerand spectral waveform analysis of the portal vein was performed. ?Imageswere saved for the patient's medical record. Comparison: None RL: Ordering Clinician: Jose MCKEE Technical Quality: Adequate Findings: Gallbladder: The gallbladder is normal in size without evidence of stoneformation or inflammation. The gallbladder wall measures 2.8 mm.Sonographic Khan's sign was reported as negative. The common bile duct isnormal in caliber measuring 3.6 mm. Liver: No liver lesion. Pancreas: The pancreas appears normal although it is partially obscured bybowel gas. Vessels: The spectral waveform of the portal vein is normal withappropriate directional flow. Additional Findings: None. [facility] Notes Date/Time Note Provider Source 2023-10-01 19:40:12 /Mu1hhTBzUizdte8my1W sp6LO7e5m6YkYq tgygKiuwKzpJpsqUIszPz38lDmuZK73297 -01-13T19:40:12 Pt given printed and verbal discharge instructions regarding gastritis or ulcers, encouraged hydration.Prescriptions provided.Pt verbalized understanding of instructions, pt awake alert oriented, resp reg unlabored, skin w/d, color appropriate for race, moves all ext well,pt encouraged to follow up with pcp.Advised to seek medical attention for new/prolonged/worsening of symptoms.No adverse reaction to meds given in ER noted upon discharge.PIV d'cd, dressing to site, catheter in tact.Awake, alert oriented, resp reg unlabored, skin w/d, pt leaving amb with steady gait, in no apparent distress. 31163-6Rtabwjkmo department LigkAG5792-41-17C47:41:07Emergency department [id number] .2.222048|[id number] for patient ylpf22220-1DfzmFAJXEINEGHXVtzvwyla d C-CDA narrative [id number] L Williams [address] Pj[id number] 23CFTBNXTCUKPKZABESYTXHU5176-99-56 T19:41:071.2.840.707278.1.72.3.15| 1.2.840.366825.1.13.104.2.7.2.7278 [id number] Ruth Blanco RN [facility] 2023-10-01 16:21:15 6XdGu9ygf09FF9gRE9wy RpALG8bJPtmkWs WCObXA8fyAlhekNfCvGQgNqHHIeHoA6468 -01-13T16:21:15Summary: US tech called out eta 1hr 35142-0Rflrbhxhp rocdNI3204-51-04T14:23:25Procedure noteTXT1.2.840.618132.1.13.104.2.7 .2.221657|[id number] for patient szwg24906-2MielADEZWWXRXWFBfgmexoj d C-CDA narrative [id number] 33NFZLLZITGZWMTSQBWXFCSO2006-60-62 T16:23:251.2.840.645792.1.72.3.15| 1.2.840.415347.1.13.104.2.7.2.7278 [id number] Ruth Ramachandran [facility] 2023-10-01 15:45:00 s8QZGfrsFjJOC57Kv17u lju8pGQIx1zPt9 p0S5FcTaKwheNv7VwqFz0PV5uI/S726423T15:45:00 Patient came in with complaints of abdominal pain and nausea since 3-4 days.PMHx: ovarian cyst 63935-4Qqeeqywfb department Triage pydyJV3206-87-55Y53:54:15[facility] Triage noteTXT1.2.840.287745.1.13.104.2.7 .2.967159|[id number] for patient lbvs27426-7Upoenbwsu department NoteLNNARRATIVEFormatted C-CDA narrative [id number] C Heredia [id number] 46DBDMPRITHKWFYGDKMVOLRM7885-43-67 T15:54:151.2.840.105048.1.72.3.15| 1.2.840.086862.1.13.104.2.7.2.7278 [id number] [facility]"
[2024-02-14] MEDS ORDERED: IBUPROFEN 200 MG TAB PO ONE (16:42)
[2024-02-14] MEDS ORDERED: CYCLOBENZAPRINE 10 MG TAB ONE (17:24)
--- NOTE | 2024-02-14 17:26 | EDPHYS ---
Physician Documentation [facility] Name: Alex Sunshine Age: 53 yrs Sex: Female : 1970 Arrival Date: 02/14/2024 Time: 15:48 Bed 14 Private MD: ED Physician Rory Stephenson HPI: 02/13 16:13 This 53 yrs old Female presents to ER via Ambulatory with complaints of Fall Injury. ms3 16:13 53-year-old female with past medical history of gestational hypertension presents to [facility] the emergency department for left knee and left elbow pain status post fall at [facility]. Patient states she was walking when she stepped on a [place] causing her to fall. Patient states her left elbow went into hamburger meat she had purchased protecting her elbow. Patient states all her weight landed on her left knee. Patient states pain is a 7/10. Patient states remaining still improves her symptoms. Patient states movement makes the pain is worse. 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 - Infectious Disease History:: Denies. - Immunization history: Last tetanus immunization: - up to date. - Social history:: Smoking status: Patient reports the use of cigarette tobacco products, smokes one pack cigarettes per day. ROS: 16:13 Constitutional: Negative for fever, and chills. Neck: Negative for injury, pain, and ms3 swelling, Cardiovascular: Negative for chest pain, and palpitations. Respiratory: Negative for shortness of breath, cough, wheezing, and pleuritic chest pain, Abdomen/GI: Negative for abdominal pain, nausea, vomiting, diarrhea, and constipation, Skin: Negative for injury, rash, and discoloration, 16:13 MS/extremity: Positive for pain, of the left knee, Exam: 16:13 Constitutional: This is a well developed, well nourished patient who is awake, alert, ms3 and in no acute distress. Head/Face: Normocephalic, atraumatic. Neck: Trachea midline, no cervical lymphadenopathy. Supple, full range of motion without nuchal rigidity, or vertebral point tenderness. No Meningismus. Chest/axilla: Normal chest wall appearance and motion. Nontender with no deformity. Cardiovascular: Regular rate and rhythm with a normal S1 and S2. No gallops, murmurs, or rubs. Normal PMI, no JVD. No pulse deficits. Respiratory: Lungs have equal breath sounds bilaterally, clear to auscultation and percussion. No rales, rhonchi or wheezes noted. No increased work of breathing, no retractions or nasal flaring. Abdomen/GI: Soft, non-tender, with normal bowel sounds. No distension or tympany. No guarding or rebound. No evidence of tenderness throughout. Skin: Warm, dry with normal turgor. Normal color with no rashes, no lesions, and no evidence of cellulitis. 16:13 Musculoskeletal/extremity: Extremities: noted in the left knee: pain, tenderness, Vital Signs: 16:06 Pulse 99; Resp 18; Temp 98.1; Pulse Ox 100% ; Weight 94.35 kg; Height 5 ft. 7 in. ; ap3 Pain 7/10; 16:10 BP 137 / 99; ap3 16:40 BP 138 / 94; Pulse 84; Resp 16; Pulse Ox 96% on R/A; me1 17:45 BP 146 / 87; Pulse 69; Resp 16; Pulse Ox 99% on R/A; me1 16:06 Body Mass Index 32.58 (94.35 kg, 170.18 cm) ap3 16:06 Pain Scale: Adult ap3 [place] Coma Score: 16:08 Eye Response: spontaneous(4). Motor Response: obeys commands(6). Verbal Response: ap3 oriented(5). Total: 15. Trauma Score (Adult): 16:08 Eye Response: spontaneous(1); Verbal Response: oriented(1); Motor Response: obeys ap3 commands(2); Systolic BP: > 89 mm Hg(4); Respiratory Rate: 10 to 29 per min(4); Juvencio Score: 15; Trauma Score: 12 MDM: 16:12 Patient medically screened. ms3 16:13 Differential diagnosis: contusion, fracture, sprain, strain. ms3 18:24 Data reviewed: vital signs, nurses notes, radiologic studies, and as a result, I will ms3 discharge patient. I considered the following discharge prescriptions or medication management in the emergency department Medications were administered in the Emergency Department. See MAR. Counseling: I had a detailed discussion with the patient and/or guardian regarding the historical points, exam findings, and any diagnostic results supporting the discharge/admit diagnosis, radiology results, the need for outpatient follow up, to return to the emergency department if symptoms worsen or persist or if there are any questions or concerns that arise at home. Special discussion: I discussed with the patient/guardian in detail that at this point there is no indication for admission to the hospital. It is understood, however, that if the symptoms persist or worsen the patient needs to return immediately for re-evaluation. ED course: Discussed x-ray results with patient. Patient to follow-up with Dr Arriaza 2 to 3 days. Patient understands and agrees with plan. All questions were answered. Return precautions discussed include worsening symptoms, or any other concerns. Offered patient crutches and knee immobilizer and patient declines at this time. Patient given prescription for ibuprofen and Flexeril.. 02/13 16:12 Order name: Knee Left 3 View XRAY; Complete Time: 17:38 ms3 Administered Medications: 16:43 Drug: Ibuprofen PO 600 mg PO once Route: PO; me1 17:32 Follow up: Response: No adverse reaction; Pain is decreased me1 17:31 Drug: Cyclobenzaprine PO 10 mg PO once Route: PO; me1 18:11 Follow up: Response: No adverse reaction; Pain is decreased me1 Disposition Summary: 02/14/24 18:02 Discharge Ordered Notes: Location: Home(02/14/24 18:02) ms3 Condition: Stable(02/14/24 18:02) ms3 Diagnosis - Pain in left knee ms3 - Fall on same level, unspecified ms3 Followup: ms3 - With: Keron Arriaza MD - When: 2 - 3 days - Reason: Recheck today's complaints Discharge Instructions: - Discharge Summary Sheet ms3 - Acute Knee Pain, Adult ms3 Forms: - Medication Reconciliation Form ms3 - Antibiotic Education ms3 - Prescription Opioid Use ms3 - Patient Portal Instructions ms3 - Leadership Thank You Letter ms3 Prescriptions: - Ibuprofen 600 mg Oral Tablet - take 1 tablet ORAL route every 6 hours As needed take with food; 30 tablet; ms3 Refills: 0, Product Selection Permitted - Cyclobenzaprine 10 mg Oral Tablet - take 1 tablet ORAL route every 8 hours As needed; 30 tablet; Refills: 0, ms3 Product Selection Permitted Signatures: Dispatcher [employer] Ruth Mendes RN RN ap3 Rory Stephenson DO DO ms3 Francie Ramos, CHERYL RN me1 Corrections: (The following items were deleted from the chart) 17: 17: Home ms3 ms3 17: 17: Stable ms3 ms3 17: 17:26 Colitis ms3 ms3 17: 17:26 Diarrhea, unspecified ms3 ms3
--- NOTE | 2024-02-14 17:26 | ER ---
Nurse's Notes [facility] Name: Alex Sunshine Age: 53 yrs Sex: Female : 1970 Arrival Date: 02/14/2024 Time: 15:48 Bed 14 Private MD: Diagnosis: Pain in left knee;Fall on same level, unspecified Presentation: 02/13 16:06 Chief complaint: Patient states: she fell on a [place], hitting her left knee and left ap3 elbow. patient denies hitting her head and denies LOC. Coronavirus screen: At this time, the client does not indicate any symptoms associated with coronavirus-19. Ebola Screen: No symptoms or risks identified at this time. Initial Sepsis Screen: Does the patient meet any 2 criteria? No. Patient's initial sepsis screen is negative. Does the patient have a suspected source of infection? No. Patient's initial sepsis screen is negative. Risk Assessment: Do you want to hurt yourself or someone else? Patient reports no desire to harm self or others. Onset of symptoms was February 14, 2024. 16:06 Method Of Arrival: Ambulatory ap3 16:06 Acuity: MARIE 4 ap3 16:09 Care prior to arrival: None. Mechanism of Injury: Fall from standing position. Trauma ap3 event details: Injury occurred in the [facility], Injury occurred: in a public building. Injury occurred: February 14, 2024. Triage Assessment: 16:08 General: Appears in no apparent distress. Behavior is calm, cooperative, appropriate ap3 for age. Pain: Complains of pain in left knee, left elbow Pain began suddenly. Neuro: Level of Consciousness is awake, alert, obeys commands, Oriented to person, place, time, situation, Appropriate for age. Cardiovascular: Patient's skin is warm and dry. Respiratory: Airway is patent Respiratory effort is even, unlabored, Respiratory pattern is regular, symmetrical. 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 - Infectious Disease History:: Denies. - Immunization history: Last tetanus immunization: - up to date. - Social history:: Smoking status: Patient reports the use of cigarette tobacco products, smokes one pack cigarettes per day. Screenin:08 Abuse screen: Denies threats or abuse. Nutritional screening: No deficits noted. ap3 Tuberculosis screening: No symptoms or risk factors identified. 16:44 [facility] ED Fall Risk Assessment (Adult) History of falling in the last 3 months, me1 including since admission Yes- single mechanical fall (1 pt) Confusion or Disorientation No (0 pts) Intoxicated or Sedated No (0 pts) Impaired Gait No (0 pts) Mobility Assist Device Used No (0 pt) Altered Elimination No (0 pt) Score/Fall Risk Level 0 - 2 = Low Risk Maintained a safe environment, Provided non-skid footwear, Hourly rounding (assess needs \T\ fall precautionary measures) done. Primary Survey: 16:08 NO uncontrolled hemorrhage observed. A: The client is awake and alert. The airway is ap3 patent. Breathing/Chest: Spontaneous respiratory effort, equal unlabored respirations, breath sounds clear bilaterally, regular pattern, symmetrical chest rise and fall. Circulation: No external hemorrhage present. Regular and strong central pulse, skin warm/dry/normal color. Disability Client is alert. Exposure/Environment: A warming method has been applied: A warm blanket has been provided to the patient. 16:45 Reassessment Alertness and Airway: Awake and alert. The airway is patent. Breathing: me1 Spontaneous respiratory effort, equal unlabored respirations, breath sounds clear bilaterally, regular pattern with symmetrical chest rise and fall. Respiratory effort Spontaneous Unlabored Breath sounds Clear Circulation: No external hemorrhage noted. Regular and strong central pulse, skin warm/dry/normal color. Heart tones Present Color [place] Temperature Warm Dry Disability: Pupils Pupils are equal, round, reactive to light and accomodation. Alert. Assessment: 16:44 General: Appears uncomfortable, well groomed, well developed, well nourished, Behavior me1 is calm, cooperative, appropriate for age, Reports slipped and fell on a [place]. c/o pain to left knee and left elbow. Pain: Complains of pain in left elbow and left knee Pain does not radiate. Pain currently is 7 out of 10 on a pain scale. Quality of pain is described as sharp, Pain began suddenly, Is continuous. Neuro: Level of Consciousness is awake, alert, obeys commands, Oriented to person, place, time, situation, Appropriate for age. Cardiovascular: Patient's skin is warm and dry. Respiratory: Airway is patent Respiratory effort is even, unlabored, Respiratory pattern is regular, symmetrical. GI: No signs and/or symptoms were reported involving the gastrointestinal system. : No signs and/or symptoms were reported regarding the genitourinary system. EENT: No signs and/or symptoms were reported regarding the EENT system. Derm: Skin is intact, is healthy with good turgor, Skin is pink, warm \T\ dry. Musculoskeletal: Reports pain in left knee and left elbow. Injury Description: slipped on a southern ute and fell, landing on left elbow and left knee. Vital Signs: 16:06 Pulse 99; Resp 18; Temp 98.1; Pulse Ox 100% ; Weight 94.35 kg; Height 5 ft. 7 in. ; ap3 Pain 7/10; 16:10 BP 137 / 99; ap3 16:40 BP 138 / 94; Pulse 84; Resp 16; Pulse Ox 96% on R/A; me1 17:45 BP 146 / 87; Pulse 69; Resp 16; Pulse Ox 99% on R/A; me1 16:06 Body Mass Index 32.58 (94.35 kg, 170.18 cm) ap3 16:06 Pain Scale: Adult ap3 Juvencio Coma Score: 16:08 Eye Response: spontaneous(4). Motor Response: obeys commands(6). Verbal Response: ap3 oriented(5). Total: 15. Trauma Score (Adult): 16:08 Eye Response: spontaneous(1); Verbal Response: oriented(1); Motor Response: obeys ap3 commands(2); Systolic BP: > 89 mm Hg(4); Respiratory Rate: 10 to 29 per min(4); Juvencio Score: 15; Trauma Score: 12 ED Course: 15:52 Patient arrived in ED. im 15:56 Jose Francisco Warren PA is PHCP. cp 15:56 Arturo Flores MD is Attending Physician. cp 16:07 Triage completed. ap3 16:09 Arm band placed on right wrist. ap3 16:09 O2 via room air. ap3 16:12 Attending Physician role handed off by Arturo Flores MD ms3 16:12 Rory Stephenson DO is Attending Physician. ms3 16:41 Francie Ramos RN is Primary Nurse. me1 16:44 Patient has correct armband on for positive identification. Bed in low position. Call me1 light in reach. Side rails up X 1. Provided Education on: POC. Verbalized understanding. . Client placed on continuous cardiac and pulse oximetry monitoring. NIBP monitoring applied. Pulse ox on. NIBP on. Warm blanket given. 16:44 No provider procedures requiring assistance completed. me1 17:07 Knee Left 3 View XRAY In Process Unspecified. EDMS 17:25 Elle Alexander MD is Referral Physician. ms3 18:01 Keron Arriaza MD is Referral Physician. ms3 18:08 Thermoregulation: warm blanket given to patient. me1 18:09 IV discontinued, intact, bleeding controlled, No redness/swelling at site. Pressure me1 dressing applied. Administered Medications: 16:43 Drug: Ibuprofen PO 600 mg PO once Route: PO; me1 17:32 Follow up: Response: No adverse reaction; Pain is decreased me1 17:31 Drug: Cyclobenzaprine PO 10 mg PO once Route: PO; me1 18:11 Follow up: Response: No adverse reaction; Pain is decreased me1 Medication: 16:44 VIS not applicable for this client. me1 Outcome: 17:26 Discharge ordered by . ms3 18:02 Discharge ordered by . ms3 18:08 Patient's length of stay was not longer than 2 hours. me1 18:09 Discharged to home ambulatory, me1 18:09 Condition: stable 18:09 Discharge instructions given to patient, Instructed on discharge instructions, follow up and referral plans. medication usage, Demonstrated understanding of instructions, follow-up care, medications, Prescriptions given X 2, 18:11 Patient left the ED. me1 Signatures: Dispatcher [employer] EDIN Jose Francisco Warren PA PA cp Prokisch, Amanda, RN RN ap3 Rory Stephenson DO DO ms3 Mickie Butcher Michelle, RN RN me1
--- NOTE | 2024-02-14 17:31 | RAD REPORT ---
EXAM DESCRIPTION: RAD - Knee Left 3 View - 02/14/2024 5:05 pm CLINICAL HISTORY: Left knee pain FINDINGS: No fracture or dislocation is seen.
[2024-02-14 18:32] VITALS: TEMP 98.1
[2024-02-14 18:51] VITALS: BP 146/87; O2SAT 99
== END 2024-02-14 18:11 | disposition home or self-care (01) ==
LOC: ER 15:48
DX: M25.562 Pain in left knee (principal); W18.30XA Fall on same level, unspecified, initial encounter; F17.210 Nicotine dependence, cigarettes, uncomplicated
CPT/HCPCS: 99285

== ENCOUNTER 2024-03-07 15:53 | Emergency (ER) | payer OTHER ==
--- OUTSIDE RECORDS SUMMARY | 2024-03-07 15:57 | XMS REPORT | Continuity of Care Document ---
Author Name Unknown Address [address] [facility] [address] [place] [address] [facility] Address [address] [facility] 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 Name Role Phone PCP, PATIENT DOES NOT HAVE A Primary Care Physic kwasi Unavailable Jose MCKEE Attending Clinician Unavailable Jose Briones Attending Clinician [phone] YOON KEITH Attending Clinician Unavailab Yoon Meza MD Attending Clinician [phone] ROMAN ARIAS Attending Clinician Erick Wolf Attending Clinician [phone] Jose MCKEE Admitting Clinician YOON Tejada Admitting Clinician Unavailab carolann Payrachel Payer Name Policy Type Policy Number Effective Date Expirati on Date Source [facility] [id number] 2023-09-19 00:00:00 Problems Condition Name Condition Details Condition Category Status Onset Date Resolution Date Last Treatment Date Treating Clinician Comments Source Left ovarian cyst Left ovarian cyst Disease Active 03-22 00:00: 00 [facility] DDD (degenerat ade disc disease), lumbar DDD (degenerat ade disc disease), lumbar Disease Active 03-22 00:00: 00 [facility] Depression , unspecifie d depression type Depression , unspecifie d depression type Disease Active 03-22 00:00: 00 [facility] Allergies, Adverse Reactions, Alerts Allergy Name Allergy Type Status Severity Reaction(s) Onset Date Inactive Date Treating Clinician Comments Source NO KNOWN ALLERGIE S Drug Class Active [facility] Social History Social Habit Start Date Stop Date Quantity Comments Source History of tobacco use Cigarette Smoker [facility] Sexual [facility] Alcohol intake 2023-10-01 00:00:00 2023-10-01 00:00:00 .86 /d [facility] History of Social function 2023-10-01 00:00:00 2023-10-01 00:00:00 [facility] Alcohol Comment 2023-03-22 00:00:00 2023-03-22 00:00:00 cut down to rarely in 2021 [facility] Cigarettes smoked current (pack per day) - Reported 2021-02-25 00:00:00 2021-02-25 00:00:00 [facility] Tobacco use and exposure 2021-02-25 00:00:00 2021-02-25 00:00:00 Smokeless tobacco non-user [facility] Sex Ass[birth year] At 1970 00:00:00 1970 00:00:00 [facility] Smoking Status Start Date Stop Date Source Smokes tobacco daily 2021-02-25 00:00:00 [facility] Medications Ordered Medication Name Filled Medication Name Start Date Stop Date Current Medication? Ordering Clinician Indication Dosage Frequency Signature (SIG) Comments Components Source maalox:diph enhydrAMINE :lidocaine 2 % viscous 1:1:1 (FIRST-MOUT HWASH BLM) oral suspension 15 mL 10-02 02:15: 00 10-02 01:14 :00 No 15mL 15 mL, Oral (Swish & Swallow), ONCE, 1 dose, On 10/01/23 at 2015, Routine [facility] ketorolac (TORADOL) injection 15 mg 10-02 00:45: 00 10-02 00:45 :00 No 15mg 15 mg, Slow IV Push, ONCE, 1 dose, On 10/01/23 at 1845, JANA [facility] ondansetron (ZOFRAN (PF)) injection 4 mg 10-01 23:30: 00 10-01 23:08 :00 No 4mg 4 mg, Slow IV Push, ONCE, 1 dose, On Tue10/01/23 at 1730, JANA [facility] NaCl 0.9% (NS) bolus infusion 500 mL 10-01 22:30: 00 10-02 01:17 :00 No 500mL at 999 mL/hr, 500 mL, IV Infusion, ONCE, 1 dose, On 10/01/23 at 1630, STAT [facility] famotidine (PEPCID (PF)) injection 20 mg 10-01 22:30: 00 10-01 23:09 :00 No 20mg 20 mg, Slow IV Push, ONCE, 1 dose, [facility] 40 mg tablet 10-01 00:00: 00 Yes [id number] 40mg Take 1 tablet by mouth in the morning. [facility] ketorolac (TORADOL) injection 30 mg 03-22 23:30: 00 03-22 22:39 :00 No 30mg 30 mg, Slow IV Push, ONCE, 1 dose, On Tue03/22/23 at 1830, Routine [facility] ondansetron (ZOFRAN (PF)) injection 4 mg 03-22 21:00: 00 03-22 21:00 :00 No 4mg 4 mg, Slow IV Push, ONCE, 1 dose, [facility] Tue03/22/23 at 1600[facility] (4 mg/mL) injection 4 mg 03-22 21:00: 00 03-22 21:00 :00 No 4mg 4 mg, Slow IV Push, ONCE, 1 dose, On Tue03/22/23 at 1600, STAT [facility] NaCl 0.9% (NS) bolus infusion 1,000 mL 03-22 19:15: 00 03-22 21:15 :00 No 1000mL at 999 mL/hr, 1,000 mL, IV Infusion, ONCE, 1 dose, On Tue03/22/23 at 1415, JANA [facility] iopamidol (ISOVUE 370-500 mL) injection 80 mL 03-22 19:00: 00 03-22 19:16 :00 No 80mL 80 mL, Intravenou s, ONCE, 1 dose, On Tue03/22/23 at 1400, Routine [facility] ondansetron (ZOFRAN (PF)) injection 4 mg 03-22 18:30: 00 03-22 18:40 :00 No 4mg 4 mg, Slow IV Push, ONCE, 1 dose, On Tue03/22/23 at 1330, JANA [facility] morpHINE (4 mg/mL) injection 4 mg 03-22 18:30: 00 03-22 18:40 :00 No 4mg 4 mg, Slow IV Push, ONCE, 1 dose, On Tue03/22/23 at 1330, STAT [facility] cyclobenzap rine 5 mg tablet 03-22 00:00: 00 Yes [id number] 5mg Take 1 tablet by mouth every 8 (eight) hours as needed for Muscle Spasms (severe pain). [facility] ibuprofen 800 mg tablet 03-22 00:00: 00 Yes [id number] 800mg Take 1 tablet by mouth every 6 (six) hours as needed for Pain (scale 4-6). [facility] DULoxetine 30 mg capsule 02-26 00:00: 00 Yes [id number] 30mg Take 1 capsule by mouth daily. [facility] etodolac 400 mg tablet 02-26 00:00: 00 Yes [id number] 400mg Take 1 tablet by mouth 2 (two) times daily. [facility] SERTraline 50 mg tablet 02-25 00:00: 00 Yes [id number] 50mg Take 1 tablet by mouth daily. [facility] Immunizations Ordered Immunization Name Filled Immunization Name Date Status Comments Source SARS-COV-2 COVID-19 PFIZER VACCINE 2021-05-06 00:00:00 Completed [facility] SARS-COV-2 COVID-19 PFIZER VACCINE Unknown Completed [facility] Vital Signs Vital Name Observation Time Observation Value Comments S trinidad Heart rate 2023-10-02 01:00:00 79 /min Un[facility] Body temperature 2023-10-02 01:00:00 37 Radha [facility] Respiratory rate 2023-10-02 01:00:00 18 /min [facility] Oxygen saturation in Arterial blood by Pulse oximetry 2023-10-02 01:00:00 99 /min [facility] Systolic blood pressure 2023-10-02 01:00:00 133 mm[Hg] [facility] Diastolic blood pressure 2023-10-02 01:00:00 82 mm[Hg] [facility] Body height 2023-10-01 21:45:00 170.2 cm [facility] Body weight 2023-10-01 21:45:00 102.059 kg [facility] BMI 2023-10-01 21:45:00 35.24 kg/m2 [facility] Systolic blood pressure 2023-03-22 22:45:00 108 mm[Hg] [facility] acute hospital Diastolic blood pressure 2023-03-22 22:45:00 71 mm[Hg] [facility] acute hospital Heart rate 2023-03-22 22:45:00 72 /min [facility] Respiratory rate 2023-03-22 22:45:00 16 /min [facility] Oxygen saturation in Arterial blood by Pulse oximetry 2023-03-22 22:45:00 99 /min [facility] acute hospital BMI 2023-03-22 17:52:00 32.84 kg/m2 [facility] Body temperature 2023-03-22 17:52:00 37.22 Radha [facility] Body weight 2023-03-22 17:52:00 97.977 kg [facility] Procedures Procedure Date / Time Performed Performing Clinician Source US GALL BLADDER 2023-10-01 23:15:00 Jose Mckee [facility] LIPASE 2023-10-01 22:41:00 Jose Mckee [facility] MAGNESIUM 2023-10-01 22:41:00 [facility] TROPONIN I 2023-10-01 22:41:00 Jose Mckee [facility] COMP. METABOLIC PANEL ([id number]) 2023-10-01 22:41:00 Jose Mckee [facility] CBC WITH DIFF 2023-10-01 22:41:00 Jose Mckee [facility] URINALYSIS 2023-10-01 22:41:00 [facility] CONSENT/REFUSAL FOR DIAGNOSIS AND TREATMENT 2023-10-01 21:42:42 Doctor Unassigned, [place] [facility] US OVARY TORSION 2023-03-22 22:19:16 Nathan Keith [facility] XR CHEST 2 VW 2023-03-22 19:17:00 Yoon Keith [facility] XR LUMBAR SPINE 2 VW 2023-03-22 19:17:00 Yoon Keith [facility] XR HIPS 3 VW RIGHT 2023-03-22 19:17:00 Julita Keith [facility] CT ABDOMEN PELVIS W CONTRAST 2023-03-22 19:00:00 Yoon Keith [facility] LIPASE 2023-03-22 18:39:00 Yoon Keith Un [facility] THYROID STIMULATING HORMONE 2023-03-22 18:39:00 Yoon Keith [facility] COMP. METABOLIC PANEL ([id number]) 2023-03-22 18:39:00 Yoon Keith [facility] CBC WITH DIFF 2023-03-22 18:39:00 Yoon Keith U [facility] URINALYSIS 2023-03-22 17:55:00 Yoon Keith Un [facility] CONSENT/REFUSAL FOR DIAGNOSIS AND TREATMENT 2023-03-22 17:47:57 Doctor Unassigned, [place] [facility] Encounters Start Date/Time End Date/Time Encounter Type Admission Type Attending Clinicians Care Facility Care Department Encounter ID Source 2023-10-01 15:56:00 2023-10-01 19:41:00 Emergency Jose ESPINOSA [facility] [id number] [facility] 2023-10-01 15:56:00 2023-10-01 19:41:00 Emergency Jose Mckee [facility] [id number] 4.2.7.2.686 [id number] [facility] 2023-03-22 13:04:00 2023-03-22 18:41:00 Emergency YOON OTT [facility] E[facility] [id number] [facility] 2023-03-22 13:04:00 2023-03-22 18:41:00 Emergency Yoon Keith [facility] [id number] [id number] 4.2.7.2.686 [id number] [facility] 2021-02-25 13:45:00 2021-02-25 13:45:00 Outpatient [facility] [id number] [facility] 2020-06-07 13:10:00 2020-06-07 13:42:00 Emergency Erick Muñoz [facility] [id number] 350.1.13.10 4.2.7.2.686 [id number] 2020-06-07 12:51:00 2020-06-07 12:51:00 Emergency X [facility] [id number] [facility] Results Test Description Test Time Test Comments [...] normal withappropriate directional flow. Additional Findings: None. [facility] Notes Date/Time Note Provider Source 2023-10-01 19:40:12 [id number]:40:12F ormatting of this note might be different from the original.Pt given printed and verbal discharge instructions regarding [...] with steady gait, in no apparent distress. 95347-5Emyiqoovy department TuaiVU6049-99-06P98:41:07[facility] [id number] .2.040699|[id number] for patient owlw50226-1XneeSHYMXEAWINASehtrvnj d C-CDA narrative [id number] L Williams RNUTMBUT - [address] Nz[id number] 57UGHQOMUDVCBIZGXKILRGCQ8061-61-71 T19:41:071.2.840.653988.1.72.3.15| 1.2.840.354261.1.13.104.2.7.2.7278 [id number] Ruth Blanco RN [facility] 2023-10-01 16:21:15 0632-39-71Z97:21:15S ummary: US [facility] called out eta 1hr 98490-1Ccofexqgg labcUG7072-06-92Y23:23:25Procedure [id number] .2.063579|[id number] for patient gjji26669-0JhnkXJXQFPNGCXWMxtamzsv d C-CDA narrative [id number] Good[id number] 25FOCTTDZBFVRDWDYNZICUIK2350-53-78 T16:23:251.2.840.168888.1.72.3.15| 1.2.840.949562.1.13.104.2.7.2.7278 [id number] Ruth Ramachandran [facility] 2023-10-01 15:45:00 4104-18-93M37:45:00F ormatting of this note might be different from the original.Patient came in with complaints of abdominal pain and nausea since 3-4 days.PMHx: ovarian cyst 90186-3Qodxrbqoa department Triage ovjeHL8878-81-16J17:54:15Emergency department Triage noteTXT1.2.840.548094.1.13.104.2.7 .2.371652|[id number] for patient gwpw98143-4Qekelcldh department NoteLNNARRATIVEFormatted C-CDA narrative [id number] C Heredia RN[id number] 63HBEBUCSRYNEBNWCNILCJQB6100-05-03 T15:54:151.2.840.323598.1.72.3.15| 1.2.840.342533.1.13.104.2.7.2.7278 [id number] Carmela Quintanilla RN [facility]"
--- NOTE | 2024-03-07 18:17 | ER ---
Nurse's Notes [facility] Name: Alex Sunshine Age: 53 yrs Sex: Female : 1970 Arrival Date: 03/07/2024 Time: 15:53 Bed DX4 Private MD: Diagnosis: Bilateral knee pain Presentation: 03/07 16:08 Chief complaint: Patient states: slipped 18 days ago on a [place] at [facility], had an xray ko1 of left knee, nothing broken but right knee was not xrayed. Both knees are clicking and painful. Coronavirus screen: At this time, the client does not indicate any symptoms associated with coronavirus-19. Ebola Screen: No symptoms or risks identified at this time. Initial Sepsis Screen: Does the patient meet any 2 criteria? No. Patient's initial sepsis screen is negative. Does the patient have a suspected source of infection? No. Patient's initial sepsis screen is negative. Risk Assessment: Do you want to hurt yourself or someone else? Patient reports no desire to harm self or others. Onset of symptoms is unknown. 16:08 Method Of Arrival: Ambulatory ko1 16:08 Acuity: MARIE 4 ko1 Triage Assessment: 16:12 General: Appears in no apparent distress. Behavior is calm, cooperative, appropriate ko1 for age. Pain: Complains of pain in right knee and left knee. 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 - Infectious Disease History:: Denies. - Social history:: Smoking status: Patient reports the use of cigarette tobacco products, denies chronic smoking, but will smoke occasionally. Screenin:42 [facility] ED Fall Risk Assessment (Adult) History of falling in the last 3 months, ld1 including since admission No falls in past 3 months (0 pts) Confusion or Disorientation No (0 pts) Intoxicated or Sedated No (0 pts) Impaired Gait Yes (1 pt) Mobility Assist Device Used No (0 pt) Altered Elimination No (0 pt) Score/Fall Risk Level 0 - 2 = Low Risk Oriented to surroundings, Maintained a safe environment, Educated pt \T\ family on fall prevention, incl call for assistance when getting out of bed, Assessed \T\ reinforced patient's understanding of fall precautions, Provided non-skid footwear, Hourly rounding (assess needs \T\ fall precautionary measures) done, Used ambulatory aids as needed (educated on \T\ assisted with), Used gait belt as appropriate. Abuse screen: Denies threats or abuse. Nutritional screening: No deficits noted. Tuberculosis screening: No symptoms or risk factors identified. Vital Signs: 16:08 BP 144 / 96; Pulse 84; Resp 18; Temp 98; Pulse Ox 100% ; ko1 ED Course: 15:58 Patient arrived in ED. ra3 16:10 Kerry Wahl MD is Attending Physician. sp3 16:11 Triage completed. ko1 16:12 Arm band placed on right wrist. Patient placed in waiting room, Patient notified of ko1 wait time. 17:16 Knee Right 2 View XRAY In Process Unspecified. EDMS 18:15 Yordy Pettit MD is Referral Physician. sp3 18:43 Provided Education on: discharge instructions. ld1 18:43 Patient has correct armband on for positive identification. ld1 18:43 No provider procedures requiring assistance completed. Patient did not have IV access ld1 during this emergency room visit. Administered Medications: No medications were administered Medication: 18:43 VIS not applicable for this client. ld1 Outcome: 18:15 Discharge ordered by . sp3 18:43 Discharged to home ambulatory, with family, ld1 18:43 Condition: good 18:43 Discharge instructions given to patient, Instructed on discharge instructions, follow up and referral plans. medication usage, Demonstrated understanding of instructions, follow-up care, medications, Prescriptions given X 1, 18:43 Patient left the ED. ld1 Signatures: Dispatcher [employer] EDMS Yumiko Stephenson RN RN ld1 Kerry Wahl MD MD sp3 Coco Crespo RN RN ko1 Karen Espinosa ra3
--- NOTE | 2024-03-07 18:17 | EDPHYS ---
Physician Documentation [facility] Name: Alex Sunshine Age: 53 yrs Sex: Female : 1970 Arrival Date: 03/07/2024 Time: 15:53 Bed DX4 Private MD: ED Physician Kerry Wahl HPI: 03/07 18:13 This 53 yrs old Female presents to ER via Ambulatory with complaints of Knee Pain - BL. sp3 18:13 53-year-old female with a history of prior hypertension who fell at [facility] 1 week ago sp3 and now complains of bilateral knee pain. Patient had her left knee x-rayed already once and now presents for right knee pain stating that the other knee was not x-rayed. She states she also needs a referral to Dr. Flores so "[facility] will pay for my claims". She denies any new symptoms. She is ambulatory without gait abnormality. ROS negative for any other signs or symptoms.. 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 - Infectious Disease History:: Denies. - Social history:: Smoking status: Patient reports the use of cigarette tobacco products, denies chronic smoking, but will smoke occasionally. ROS: 18:14 Constitutional: Negative for fever, chills, and weight loss, Eyes: Negative for injury, sp3 pain, redness, and discharge, ENT: Negative for injury, pain, and discharge, Neck: Negative for injury, pain, and swelling, Cardiovascular: Negative for chest pain, palpitations, and edema, Respiratory: Negative for shortness of breath, cough, wheezing, and pleuritic chest pain, Abdomen/GI: Negative for abdominal pain, nausea, vomiting, diarrhea, and constipation, Back: Negative for injury and pain, Skin: Negative for injury, rash, and discoloration, Neuro: Negative for headache, weakness, numbness, tingling, and seizure, Psych: Negative for depression, anxiety, suicide ideation, homicidal ideation, and hallucinations, Allergy/Immunology: Negative for hives, rash, and allergies, Endocrine: Negative for neck swelling, polydipsia, polyuria, polyphagia, and marked weight changes, 18:14 All other systems are negative, Exam: 18:14 Constitutional: This is a well developed, well nourished patient who is awake, alert, sp3 and in no acute distress. Head/Face: Normocephalic, atraumatic. Eyes: Pupils equal round and reactive to light, extra-ocular motions intact. Lids and lashes normal. Conjunctiva and sclera are non-icteric and not injected. Cornea within normal limits. Periorbital areas with no swelling, redness, or edema. Neck: Trachea midline, no thyromegaly or masses palpated, and no cervical lymphadenopathy. Supple, full range of motion without nuchal rigidity, or vertebral point tenderness. No Meningismus. Chest/axilla: Normal chest wall appearance and motion. Nontender with no deformity. No lesions are appreciated. Cardiovascular: Regular rate and rhythm with a normal S1 and S2. No gallops, murmurs, or rubs. Normal PMI, no JVD. No pulse deficits. Respiratory: Lungs have equal breath sounds bilaterally, clear to auscultation and percussion. No rales, rhonchi or wheezes noted. No increased work of breathing, no retractions or nasal flaring. Abdomen/GI: Soft, non-tender, with normal bowel sounds. No distension or tympany. No guarding or rebound. No evidence of tenderness throughout. Back: No spinal tenderness. No costovertebral tenderness. Full range of motion. MS/ Extremity: Pulses equal, no cyanosis. Neurovascular intact. Full, normal range of motion. Neuro: Awake and alert, GCS 15, oriented to person, place, time, and situation. Cranial nerves II-XII grossly intact. Motor strength 5/5 in all extremities. Sensory grossly intact. Cerebellar exam normal. Normal gait. Psych: Awake, alert, with orientation to person, place and time. Behavior, mood, and affect are within normal limits. 18:14 Musculoskeletal/extremity: Normal right knee exam with no laxity, knee effusion or any other abnormality. No bruising or contusion noted. Patient is ambulatory.. Vital Signs: 16:08 BP 144 / 96; Pulse 84; Resp 18; Temp 98; Pulse Ox 100% ; ko1 MDM: 16:15 Patient medically screened. sp3 18:14 Data reviewed: vital signs, nurses notes, radiologic studies. ED course: Right knee sp3 x-ray normal. Will discharge on diclofenac and refer to Dr. Flores for any further workup or MRI if indicated.. 03/07 16:16 Order name: Knee Right 2 View XRAY; Complete Time: 18:37 sp3 Administered Medications: No medications were administered Disposition Summary: 03/07/24 18:15 Discharge Ordered Notes: Location: Home sp3 Condition: Stable sp3 Diagnosis - Bilateral knee pain sp3 Followup: sp3 - With: Yordy Flores MD - When: Upon discharge from the Emergency Department - Reason: Recheck today's complaints Discharge Instructions: - Discharge Summary Sheet sp3 - Acute Knee Pain, Adult sp3 Forms: - Medication Reconciliation Form sp3 - Antibiotic Education sp3 - Prescription Opioid Use sp3 - Patient Portal Instructions sp3 - Leadership Thank You Letter sp3 Prescriptions: - Diclofenac Sodium 75 mg Oral Tablet Sustained Release - take 1 tablet ORAL route 2 times per day; 30 tablet; Refills: 0, Product sp3 Selection Permitted Signatures: Dispatcher [employer] EDKerry Almanza MD MD sp3 Coco Crespo, RN RN ko1
--- NOTE | 2024-03-07 18:36 | RAD REPORT ---
EXAM DESCRIPTION: RAD - Knee Right 2 View - 03/07/2024 5:14 pm CLINICAL HISTORY: PAIN COMPARISON: No comparisons TECHNIQUE: Right knee, 3 views. FINDINGS: No fracture, dislocation or periosteal reaction.No joint effusion seen. No joint space cem rowing. No soft tissue abnormality. Clinical concerns for internal derangement or occult bony injury could be further assessed with MR im aging. IMPRESSION: Negative right knee.
[2024-03-07 18:56] VITALS: BP 144/96; TEMP 98; O2SAT 100
== END 2024-03-07 18:43 | disposition home or self-care (01) ==
LOC: ER 15:53
DX: M25.562 Pain in left knee (principal); M25.561 Pain in right knee